=== PATIENT | female | born 1950 | race Caucasian/White ===

== ENCOUNTER 2018-10-09 21:27 | Inpatient (IN) | payer MEDICARE, MEDICAID ==
[~2018-10-09] VITALS: Ht 160 cm; Wt 45.0 kg
[~2018-10-09 21:27] MED LIST: HYDR-2514 PO
[2018-10-09 22:01] LABS: BASOPHILS % (AUTO) 0.4 % (0-1); EOSINOPHILS # (AUTO) 0.2 X10'3 (0-0.9); HEMOGLOBIN 12.5 g/dl (12.0-16.0); LYMPHOCYTES # (AUTO) 1.3 X10'3 (1.1-4.8); LYMPHOCYTES % (AUTO) 12.2 % (21-51); MEAN CORPUSCULAR HEMOGLOBIN 28.9 PG (27.0-31.0); MEAN CORPUSCULAR VOLUME 87.5 FL (78-98); MEAN PLATELET VOLUME 7.3 FL (7.4-10.4); MONOCYTES # (AUTO) 0.7 X10'3 (0-0.9); MONOCYTES % (AUTO) 6.6 % (2-12); NEUTROPHILS # (AUTO) 8.1 X10'3 (1.8-7.7); NEUTROPHILS % (AUTO) 78.8 % (42-75); PLATELET COUNT 315 X10'3 (140-440); RED BLOOD COUNT 4.34 X10'6 (4.20-5.60); RED CELL DISTRIBUTION WIDTH 13.6 % (11.5-14.5); WHITE BLOOD COUNT 10.3 X10'3 (4.5-11.0)
[2018-10-09 22:17] LABS: PROTHROMBIN TIME 10.1 SECONDS (9.0-12.0)
[2018-10-09 22:19] LABS: ALANINE AMINOTRANSFERASE 18 U/L (12-78); ALBUMIN 3.6 G/DL (3.4-5.0); ALBUMIN/GLOBULIN RATIO 0.9 (1.1-1.5); ALKALINE PHOSPHATASE 87 IU/L (46-116); ANION GAP 10 (8-16); ASPARTATE AMINO TRANSFERASE 19 U/L (10-37); BILIRUBIN,TOTAL 0.4 MG/DL (0.1-1.0); BLOOD UREA NITROGEN 15 MG/DL (7-18); CHLORIDE 101 MMOL/L (99-107); GLUCOSE 124 MG/DL (70-104); POTASSIUM 3.1 MMOL/L (3.5-5.1); SODIUM 139 MMOL/L (135-145); TOTAL CARBON DIOXIDE 28.3 MMOL/L (24-32); TOTAL PROTEIN 7.8 G/DL (6.4-8.2); eGFR 55 ML/MIN
[2018-10-09] MEDS ORDERED: normal saline 1000ML IV soln IVB ONE (22:25)
[2018-10-09] MEDS ORDERED: normal saline 1000ml 1,000 ML IV ONE (22:45)
[2018-10-09] MEDS ORDERED: iohexol 300mg/ml 100ml inj. ONE (22:53)
[2018-10-09 23:34] LABS: OCCULT BLOOD STOOL POSITIVE (Neg)
[2018-10-10] MEDS ORDERED: PROCHC RC (00:19)
[2018-10-10] MEDS ORDERED: piperacillin/tazo 3.375gm/50ml 50 ML IV ONE (01:05)
[2018-10-10] MEDS ORDERED: morphine 4 MG/ML inj SYRINge IV ONE (01:30)
[2018-10-10 01:47] LABS: CLARITY,URINE CLEAR (Clear); COLOR,URINE STRAW (Yellow); GLUCOSE, URINE NEGATIVE (Neg); KETONES,URINE NEGATIVE (Neg); LEUKOCYTE ESTERASE ,URINE NEGATIVE (Neg); NITRITES, URINE NEGATIVE (Neg); OCCULT BLOOD,URINE NEGATIVE (Neg); PROTEIN,URINE NEGATIVE (Neg); UROBILINOGEN,URINE 0.2 E.U/dL (0.2-1.0)
[2018-10-10 02:06] LABS: UA COLLECTION TYPE CLN CATCH MIDSTREAM
[2018-10-10] MEDS ORDERED: acetaminophen 325mg tablet PO PRN (02:40)
[2018-10-10] MEDS ORDERED: ondansetron/PF 4mg/2ml inj IV PRN (02:40)
[2018-10-10] MEDS ORDERED: morphine 2 MG/ML inj. syringe IV PRN (02:45)
[2018-10-10] MEDS: normal saline 1000ml 1,000 ML IV SCH ×3 (03:01→22:37)
[2018-10-10 04:30] VITALS: BP 131/56
[2018-10-10] MEDS ORDERED: potassium Cl 40MEQ/NS 500ml 500 ML IV PRN ×2 (04:50)
[2018-10-10] MEDS ORDERED: potassium Cl 20 mEq SR tablet PO PRN ×2 (04:50)
[2018-10-10] MEDS ORDERED: magnesium 4gm in 100ml NS 100 ML IV PRN (04:50)
[2018-10-10] MEDS ORDERED: magnesium 2GM in 50ml NS 50 ML IV PRN (04:50)
[2018-10-10 06:15] LABS: MAGNESIUM 1.8 MG/DL (1.5-2.4); POTASSIUM 3.7 MMOL/L (3.5-5.1)
[2018-10-10 08:00] VITALS: BP 133/61
[2018-10-10] MEDS: metroNIDAZOLE-Flagyl 500mg/NS 100 ML IV SCH ×2 (09:16→16:08)
[2018-10-10] MEDS: morphine 4 MG/ML inj SYRINge IV PRN ×4 (09:17→22:22)
[2018-10-10] MEDS: ciprofloxacin lact 400MG/200ML 200 ML IV SCH ×2 (09:25→19:35)
[2018-10-10 10:29] LABS: BASOPHILS % (AUTO) 0.4 % (0-1); EOSINOPHILS # (AUTO) 0.2 X10'3 (0-0.9); EOSINOPHILS % (AUTO) 2.4 % (0-6); HEMATOCRIT 31.4 % (35.0-45.0); HEMOGLOBIN 10.5 g/dl (12.0-16.0); LYMPHOCYTES # (AUTO) 1.4 X10'3 (1.1-4.8); MEAN CORPUSCULAR HGB CONC 33.4 % (33.0-36.5); MEAN CORPUSCULAR VOLUME 86.7 FL (78-98); MEAN PLATELET VOLUME 7.4 FL (7.4-10.4); MONOCYTES # (AUTO) 0.8 X10'3 (0-0.9); MONOCYTES % (AUTO) 11.3 % (2-12); NEUTROPHILS # (AUTO) 4.5 X10'3 (1.8-7.7); NEUTROPHILS % (AUTO) 65.9 % (42-75); PLATELET COUNT 245 X10'3 (140-440); RED BLOOD COUNT 3.62 X10'6 (4.20-5.60); RED CELL DISTRIBUTION WIDTH 13.7 % (11.5-14.5); WHITE BLOOD COUNT 6.9 X10'3 (4.5-11.0)
[2018-10-10 10:44] LABS: ALANINE AMINOTRANSFERASE 16 U/L (12-78); ALBUMIN 2.8 G/DL (3.4-5.0); ALBUMIN/GLOBULIN RATIO 0.8 (1.1-1.5); ALKALINE PHOSPHATASE 64 IU/L (46-116); ANION GAP 7 (8-16); ASPARTATE AMINO TRANSFERASE 13 U/L (10-37); BILIRUBIN,TOTAL 0.3 MG/DL (0.1-1.0); BLOOD UREA NITROGEN 7 MG/DL (7-18); BUN/CREATININE RATIO 8.2 (6.6-38.0); CALCIUM 7.7 MG/DL (8.5-10.1); CHLORIDE 107 MMOL/L (99-107); CREATININE 0.85 MG/DL (0.40-0.90); GLUCOSE 115 MG/DL (70-104); POTASSIUM 3.6 MMOL/L (3.5-5.1); SODIUM 139 MMOL/L (135-145); TOTAL CARBON DIOXIDE 24.8 MMOL/L (24-32); TOTAL PROTEIN 6.4 G/DL (6.4-8.2); eGFR 67 ML/MIN
[2018-10-10 11:04] LABS: INR 1.1 INR; PARTIAL THROMBOPLASTIN TIME 24 SECONDS (22-32); PROTHROMBIN TIME 10.3 SECONDS (9.0-12.0)
[2018-10-10 12:00] VITALS: BP 120/70
[2018-10-10] MEDS: lactobacillus rhamnosus 10,000 MMU CELLS/CAPSULE PO SCH (19:35)
[2018-10-10 20:00] VITALS: BP 119/77
[2018-10-11] VITALS: BP 117/53
[2018-10-11] MEDS: HYDROcodone/acetaminophen 10/325mg tab PO PRN ×2 (01:16→09:11)
[2018-10-11] MEDS: metroNIDAZOLE-Flagyl 500mg/NS 100 ML IV SCH ×2 (01:23→09:06)
[2018-10-11 05:42] LABS: BASOPHILS % (AUTO) 0.3 % (0-1); EOSINOPHILS # (AUTO) 0.3 X10'3 (0-0.9); EOSINOPHILS % (AUTO) 3.6 % (0-6); HEMATOCRIT 29.6 % (35.0-45.0); HEMOGLOBIN 9.9 g/dl (12.0-16.0); LYMPHOCYTES # (AUTO) 1.9 X10'3 (1.1-4.8); LYMPHOCYTES % (AUTO) 24.5 % (21-51); MEAN CORPUSCULAR HGB CONC 33.3 % (33.0-36.5); MEAN CORPUSCULAR VOLUME 87.2 FL (78-98); MEAN PLATELET VOLUME 7.4 FL (7.4-10.4); MONOCYTES # (AUTO) 0.7 X10'3 (0-0.9); MONOCYTES % (AUTO) 8.8 % (2-12); NEUTROPHILS # (AUTO) 4.8 X10'3 (1.8-7.7); NEUTROPHILS % (AUTO) 62.8 % (42-75); PLATELET COUNT 235 X10'3 (140-440); RED BLOOD COUNT 3.39 X10'6 (4.20-5.60); RED CELL DISTRIBUTION WIDTH 13.6 % (11.5-14.5); WHITE BLOOD COUNT 7.6 X10'3 (4.5-11.0)
[2018-10-11 06:15] LABS: ALANINE AMINOTRANSFERASE 12 U/L (12-78); ALBUMIN 2.7 G/DL (3.4-5.0); ALBUMIN/GLOBULIN RATIO 0.8 (1.1-1.5); ALKALINE PHOSPHATASE 67 IU/L (46-116); ANION GAP 10 (8-16); ASPARTATE AMINO TRANSFERASE 14 U/L (10-37); BILIRUBIN,TOTAL 0.4 MG/DL (0.1-1.0); BLOOD UREA NITROGEN 6 MG/DL (7-18); BUN/CREATININE RATIO 6.6 (6.6-38.0); CALCIUM 8.5 MG/DL (8.5-10.1); CHLORIDE 107 MMOL/L (99-107); CREATININE 0.91 MG/DL (0.40-0.90); GLUCOSE 98 MG/DL (70-104); MAGNESIUM 1.8 MG/DL (1.5-2.4); POTASSIUM 3.7 MMOL/L (3.5-5.1); SODIUM 142 MMOL/L (135-145); TOTAL CARBON DIOXIDE 25.2 MMOL/L (24-32); TOTAL PROTEIN 6.2 G/DL (6.4-8.2); eGFR 62 ML/MIN
[2018-10-11 07:00] VITALS: BP_SYST 113; BP_SYST 130; BP_DIAS 53; BP_DIAS 59
[2018-10-11] MEDS: normal saline 1000ml 1,000 ML IV SCH (08:37)
[2018-10-11] MEDS: lactobacillus rhamnosus 10,000 MMU CELLS/CAPSULE PO SCH (09:06)
[2018-10-11] MEDS: ciprofloxacin lact 400MG/200ML 200 ML IV SCH (10:43)
[2018-10-11] MEDS ORDERED: METR-211 PO (14:06)
[2018-10-11] MEDS ORDERED: CIPR-230 PO (14:06)
== END 2018-10-11 18:05 | disposition home or self-care (01) | DRG 377 ==
LOC: ER 21:28 → ED HOLD 10-10 02:37 → SUR 3N 10-10 04:10 → CMPBEDREQ 10-10 04:20
PROVIDERS: ADMIT Internal Medicine; ATTEND Family Medicine
DX: K92.2 Gastrointestinal hemorrhage, unspecified (principal); E43 Unspecified severe protein-calorie malnutrition; A04.9 Bacterial intestinal infection, unspecified; D62 Acute posthemorrhagic anemia; Z68.1 Body mass index [BMI] 19.9 or less, adult; B19.20 Unspecified viral hepatitis C without hepatic coma; K64.4 Residual hemorrhoidal skin tags; Z90.710 Acquired absence of both cervix and uterus; Z88.6 Allergy status to analgesic agent; Z79.899 Other long term (current) drug therapy
CPT/HCPCS: 36415; 74177; 80053; 81003; 82272; 83605; 83735; 84132; 85025; 85610; 85730; 87040; 87070; 93005; 96361; 96365; 99285; G0378; J0744; J2270; J2543; J3490; J7030; Q9967

== ENCOUNTER 2019-03-17 13:44 | Emergency (ER) | payer MEDICARE, MEDICAID ==
[~2019-03-17] VITALS: Ht 162.6 cm; Wt 56.8 kg
[2019-03-17 13:50] VITALS: BP 131/77
[2019-03-17] MEDS ORDERED: LIDOcaine 5% patch TP ONE (14:30)
[2019-03-17] MEDS ORDERED: acetaminophen 325mg tablet PO ONE (14:30)
[2019-03-17] MEDS ORDERED: ketorolac trometh inj. 60 MG/2 ML VIAL IM ONE (14:30)
[2019-03-17] MEDS ORDERED: IBUP-1984 PO (14:32)
[2019-03-17] MEDS ORDERED: LIDO700A32 TOP (14:32)
[2019-03-17] MEDS ORDERED: HYDR-3965 PO (14:32)
== END 2019-03-17 14:53 | disposition home or self-care (01) ==
LOC: ER 13:44
DX: M54.6 Pain in thoracic spine (principal); G89.29 Other chronic pain; Z90.710 Acquired absence of both cervix and uterus; Z88.5 Allergy status to narcotic agent; Z79.899 Other long term (current) drug therapy
CPT/HCPCS: 99284; J1885

== ENCOUNTER 2021-10-10 14:50 | Outpatient (CLI) | payer MEDICARE, MEDICAID ==
[~2021-10-10] VITALS: Ht 162.6 cm; Wt 72.1 kg
[~2021-10-10 14:50] MED LIST changes: +ASPI81TA52 PO; +CLOP75TA34 PO; -HYDR-2514 PO; +HYDR-3965 PO; +SIMV40TA PO
[2021-10-10] MEDS ORDERED: GABA-530 PO (15:19)
[2021-10-10] MEDS ORDERED: LOSA100T57 PO (15:19)
[2021-10-10] MEDS ORDERED: ZOLP5TAB8 PO (15:19)
[2021-10-10] MEDS ORDERED: HYDR-3965 PO (15:22)
[2021-10-10] MEDS ORDERED: HYDR-3964 PO (15:22)
[2021-10-10] MEDS ORDERED: ASPI-1071 PO (15:23)
[2021-10-10 15:54] LABS: BASOPHILS % (AUTO) 0.8 % (0-1); EOSINOPHILS # (AUTO) 0.2 X10'3 (0-0.9); EOSINOPHILS % (AUTO) 3.3 % (0-6); LYMPHOCYTES # (AUTO) 1.8 X10'3 (1.1-4.8); LYMPHOCYTES % (AUTO) 29.7 % (21-51); MEAN CORPUSCULAR HEMOGLOBIN 28.3 PG (27.0-31.0); MEAN CORPUSCULAR HGB CONC 32.8 g/dL (33.0-36.5); MEAN CORPUSCULAR VOLUME 86.3 FL (78-98); MEAN PLATELET VOLUME 7.1 FL (7.4-10.4); MONOCYTES # (AUTO) 0.7 X10'3 (0-0.9); MONOCYTES % (AUTO) 11.3 % (2-12); NEUTROPHILS # (AUTO) 3.3 X10'3 (1.8-7.7); NEUTROPHILS % (AUTO) 54.9 % (42-75); PRE OP HEMATOCRIT 33.9 % (35.0-45.0); PRE OP HEMOGLOBIN 11.1 g/dL (12.0-16.0); PRE OP PLATELET COUNT 287 X10'3 (140-440); RED BLOOD COUNT 3.93 X10'6 (4.20-5.60)
[2021-10-10 16:11] LABS: ALKALINE PHOSPHATASE 71 IU/L (46-116); BLOOD UREA NITROGEN 13 MG/DL (7-18); BUN/CREATININE RATIO 11.8 (6.6-38.0); CALCIUM 9.2 MG/DL (8.5-10.1); CHLORIDE 105 MMOL/L (99-107); PRE OP ALT 23 U/L (30-65); PRE OP ANION GAP 11 (8-16); PRE OP AST 22 U/L (10-37); PRE OP BILIRUB, TOTAL 0.3 MG/DL (0.0-1.0); PRE OP GLUCOSE 95 MG/DL (70-104); PRE OP POTASSIUM 4.7 MMOL/L (3.4-5.1); PRE OP SODIUM 141 MMOL/L (135-145); TOTAL CARBON DIOXIDE 24.8 MMOL/L (24-32); eGFR 49 ML/MIN
[2021-10-10 16:20] LABS: PRE OP INR 0.9 INR; PRE OP PROTIME 9.8 SECONDS (9.0-12.0)
[2021-10-18] MEDS ORDERED: ringers solution, lacted 1,000 ML IV SCH (05:00)
[2021-10-18] MEDS ORDERED: famotidine 20mg tablet PO ONE (05:30)
== END 2021-10-10 23:59 | disposition home or self-care (01) ==
LOC: PRE-OP 14:50 → EDSTATUS 10-18 11:00
PROVIDERS: ATTEND Surgery
DX: Z01.818 Encounter for other preprocedural examination (principal); K44.9 Diaphragmatic hernia without obstruction or gangrene; Z20.822 Contact with and (suspected) exposure to COVID-19; Z79.01 Long term (current) use of anticoagulants
CPT/HCPCS: 36415; 71046; 80053; 85025; 85610; 85730; 87081; 93005; U0003; U0005; J7120

== ENCOUNTER 2021-12-20 05:39 | Inpatient (IN) | payer MEDICARE, MEDICAID ==
[2021-12-13 15:46] LABS: BASOPHILS # (AUTO) 0.1 X10'3 (0-0.2); BASOPHILS % (AUTO) 0.9 % (0-1); EOSINOPHILS # (AUTO) 0.2 X10'3 (0-0.9); EOSINOPHILS % (AUTO) 2.1 % (0-6); LYMPHOCYTES # (AUTO) 1.5 X10'3 (1.1-4.8); LYMPHOCYTES % (AUTO) 18.5 % (21-51); MEAN CORPUSCULAR HEMOGLOBIN 28.5 PG (27.0-31.0); MEAN CORPUSCULAR HGB CONC 33.2 g/dL (33.0-36.5); MEAN PLATELET VOLUME 7.6 FL (7.4-10.4); MONOCYTES # (AUTO) 0.7 X10'3 (0-0.9); MONOCYTES % (AUTO) 8.8 % (2-12); NEUTROPHILS # (AUTO) 5.5 X10'3 (1.8-7.7); NEUTROPHILS % (AUTO) 69.7 % (42-75); PRE OP HEMOGLOBIN 11.3 g/dL (12.0-16.0); PRE OP PLATELET COUNT 305 X10'3 (140-440); RED BLOOD COUNT 3.95 X10'6 (4.20-5.60); RED CELL DISTRIBUTION WIDTH 14.4 % (11.5-14.5)
[2021-12-13 15:59] LABS: BLOOD UREA NITROGEN 13 MG/DL (7-18); CALCIUM 9.1 MG/DL (8.5-10.1); CHLORIDE 106 MMOL/L (99-107); CREATININE 1.08 MG/DL (0.40-0.90); PRE OP ANION GAP 11 (8-16); PRE OP GLUCOSE 95 MG/DL (70-104); PRE OP POTASSIUM 5.1 MMOL/L (3.4-5.1); PRE OP SODIUM 142 MMOL/L (135-145); TOTAL CARBON DIOXIDE 25.2 MMOL/L (24-32); eGFR 50 ML/MIN
[2021-12-13 16:00] LABS: ALBUMIN/GLOBULIN RATIO 1.1 (1.1-1.5); ALKALINE PHOSPHATASE 78 IU/L (46-116); PRE OP ALT 23 U/L (30-65); PRE OP AST 21 U/L (10-37); PRE OP BILIRUB, TOTAL 0.2 MG/DL (0.0-1.0); TOTAL PROTEIN 7.5 G/DL (6.4-8.2)
[2021-12-20] VITALS (21 sets, daily range): BP systolic 114–157; BP diastolic 53–88
[~2021-12-20] VITALS: Ht 162.6 cm; Wt 74.8 kg
[~2021-12-20 05:39] MED LIST changes: +ASPI-1071 PO; -ASPI81TA52 PO; -CLOP75TA34 PO; +GABA-530 PO; +HYDR-3686 PO; +LOSA100T57 PO; +cefazolin/dext.iso 2gm/50ml IV ONE; +famotidine 20mg tablet PO ONE; +ringers solution, lacted 1,000 ML IV SCH
[2021-12-20] MEDS ORDERED: LIDOcaine 1% (10mg/ml) 2ml vial ONE (05:55)
[2021-12-20] MEDS ORDERED: BUPIVAcaine 0.5% inj/PF 30 ML ONE (06:58)
[2021-12-20] MEDS ORDERED: LIDOcaine 1% 30ml preserv. free vial ONE (06:58)
[2021-12-20] MEDS ORDERED: sevoflurane 250ml liquid IH ONE (08:12)
[2021-12-20] MEDS ORDERED: midazolam 1 mg/ML 2ml injection ONE (08:13)
[2021-12-20] MEDS ORDERED: fentaNYL /PF 50mcg/ml 5ml ampule ONE (08:13)
[2021-12-20] MEDS ORDERED: ketamine 50mg/5ml syringe ONE (08:34)
[2021-12-20] MEDS ORDERED: LIDOcaine 2% (20mg/ml) 5ml vial ONE (09:09)
[2021-12-20] MEDS ORDERED: rocuronium 10mg/ml inj IV ONE (09:09)
[2021-12-20] MEDS ORDERED: neostigmine methylsulfate 1 MG/ML 10ml vial ONE (09:09)
[2021-12-20] MEDS ORDERED: ondansetron/PF 4mg/2ml inj ONE (09:09)
[2021-12-20] MEDS ORDERED: dexamethasone sod phosphate 4mg/ml inj. ONE (09:09)
[2021-12-20] MEDS ORDERED: propofol inj 20 ML IV ONE (09:09)
[2021-12-20] MEDS ORDERED: labetalol 20mg/4ml (5mg/ml) syringe IV ONE (09:09)
[2021-12-20] MEDS ORDERED: ePHEDrine 50MG/ML INJ. ONE (09:09)
[2021-12-20] MEDS ORDERED: glycopyrrolate 0.2mg/ml inj ONE (09:09)
--- NOTE | 2021-12-20 10:20 | NUR ---
PT ARRIVED TO RECOVERY VIA BED, WAKING UP, VSS, ACCOMPANIED BY DR ASH-ANESTHESIA REPORT GIVEN, PIV 20G RUE-LR RUNNING, F/C PLACED IN OR, DERMABOND X5 TO ABD-CDI, SCDS ON, DENIES N/V
[2021-12-20] MEDS ORDERED: naloxone 0.4 mg/ml inj IV PRN (10:25)
[2021-12-20] MEDS ORDERED: CADD PCA waste documentation MC PRN (10:25)
[2021-12-20] MEDS ORDERED: Potassium Cl inj 20 MEQ in ringers solution, lacted 1,000 ML IV SCH (10:25)
[2021-12-20] MEDS ORDERED: HYDROmorph./NS 0.2 mg/ml CADD 100 ML IV SCH (10:25)
[2021-12-20] MEDS ORDERED: ondansetron/PF 4mg/2ml inj IV PRN ×3 (10:25→12:15)
[2021-12-20] MEDS: ringers solution, lacted 1,000 ML IV SCH ×3 (10:30→22:59)
[2021-12-20] MEDS ORDERED: hydrOXYzine 25 MG tablet PO PRN (10:30)
[2021-12-20] MEDS ORDERED: ringers solution, lacted 1,000 ML IV SCH ×2 (10:35→12:15)
[2021-12-20] MEDS ORDERED: HYDROmorphone/PF 0.2 MG/ML SYRINGE IV PRN ×3 (10:35→12:15)
[2021-12-20] MEDS: HYDROmorphone/PF 0.2 MG/ML SYRINGE IV PRN ×4 (10:48→14:12)
[2021-12-20] MEDS: morphine 2 MG/ML inj. syringe IV PRN ×3 (10:52→14:13)
[2021-12-20] MEDS: albuterol 2.5 MG/3 ML nebule NEB SCH ×3 (11:00→19:00)
[2021-12-20] MEDS ORDERED: acetaminophen 1,000mg/100ml IV 100 ML IV ONE (11:00)
[2021-12-20] MEDS ORDERED: HYDROmorph./NS 0.2 mg/ml CADD 50 ML IV SCH (11:28)
--- NOTE | 2021-12-20 12:00 | NUR ---
PT PAINFUL-ATTEMPTING TO ASSIST WITH PAIN RELIEF-MEDS GIVEN, PT EATING ICE CHIPS, TRYING TO REPOSITION FOR COMFORT IN BED, VSS, F/C IN PLACE, IVF RUNNING, WAITING FOR BED.
[2021-12-20] MEDS ORDERED: acetaminophen 1,000mg/100ml IV 100 ML IV PRN (12:15)
[2021-12-20] MEDS ORDERED: labetalol 20mg/4ml (5mg/ml) syringe IV PRN (12:15)
[2021-12-20] MEDS ORDERED: morphine 2 MG/ML inj. syringe IV PRN (12:15)
[2021-12-20] MEDS: HYDROmorph./NS 0.2 mg/ml CADD 50 ML IV SCH ×6 (12:22→23:00)
[2021-12-20] MEDS: gabapentin 300mg capsule PO SCH ×2 (13:00→20:28)
--- NOTE | 2021-12-20 13:45 | NUR ---
VSS, PAIN MANAGEABLE, JUST GAVE ANOTHER DOSE OF DILAUDID-COLUMN PRECASTER SET UP BUT NO PT BUTTON AVAILABLE, WILL ATTACHED ON FLOOR UPON TRANSFER, REPORT CALLED TO SIRI RN-ALL QUESTIONS ANSWERED, NO CHANGE IN INCISION SITE-CDI, SCDS ON, IVF RUNNING-20G RIGHT HAND, TAKEN IN BED WITH BELONGINGS TO ROOM 355B.
--- NOTE | 2021-12-20 14:00 | NUR ---
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
--- NOTE | 2021-12-20 14:04 | NUR ---
PT ARRIVED TO FLOOR, VS STABLE, IV FLUIDS ORDERED, CADD PUMP NOT FUNCTIONING CORRECTLY BOOKING AGENT RESOLVING ISSUE. PT IS 7/10 PAIN.
--- NOTE | 2021-12-20 19:06 | NUR ---
Patient in room JUSTEN 355. I have received report from KARLA Latif and had the opportunity to ask questions and assume patient care.
[2021-12-20] MEDS ORDERED: atorvastatin 20mg tablet PO SCH (21:00)
[2021-12-21] MEDS: HYDROmorph./NS 0.2 mg/ml CADD 50 ML IV SCH ×6 (01:00→11:00)
[2021-12-21 04:00] VITALS: BP 147/69
[2021-12-21 06:03] LABS: BASOPHILS % (AUTO) 0.3 % (0-1); EOSINOPHILS % (AUTO) 0 % (0-6); HEMATOCRIT 29.9 % (35.0-45.0); HEMOGLOBIN 9.8 g/dl (12.0-16.0); LYMPHOCYTES % (AUTO) 10.8 % (21-51); MEAN CORPUSCULAR HEMOGLOBIN 28.6 PG (27.0-31.0); MEAN CORPUSCULAR HGB CONC 32.7 g/dL (33.0-36.5); MEAN CORPUSCULAR VOLUME 87.3 FL (78-98); MEAN PLATELET VOLUME 7.1 FL (7.4-10.4); MONOCYTES # (AUTO) 0.6 X10'3 (0-0.9); MONOCYTES % (AUTO) 6.3 % (2-12); NEUTROPHILS # (AUTO) 7.6 X10'3 (1.8-7.7); NEUTROPHILS % (AUTO) 82.6 % (42-75); PLATELET COUNT 236 X10'3 (140-440); RED BLOOD COUNT 3.43 X10'6 (4.20-5.60); RED CELL DISTRIBUTION WIDTH 14.7 % (11.5-14.5); WHITE BLOOD COUNT 9.2 X10'3 (4.5-11.0)
--- NOTE | 2021-12-21 06:14 | NUR ---
Problems reprioritized. Patient report given, questions answered & plan of care reviewed with KARLA Latif.
[2021-12-21 06:34] LABS: ALBUMIN 3.3 G/DL (3.4-5.0); ANION GAP 10 (8-16); BLOOD UREA NITROGEN 18 MG/DL (7-18); BUN/CREATININE RATIO 17.1 (6.6-38.0); CALCIUM 8.3 MG/DL (8.5-10.1); CHLORIDE 104 MMOL/L (99-107); CREATININE 1.05 MG/DL (0.40-0.90); GLUCOSE 134 MG/DL (70-104); SODIUM 137 MMOL/L (135-145); TOTAL CARBON DIOXIDE 22.6 MMOL/L (24-32); eGFR 52 ML/MIN
--- NOTE | 2021-12-21 06:41 | NUR ---
Patient in room JUSTEN 355. I have received report from WALLY ACOSTA and had the opportunity to ask questions and assume patient care.
--- NOTE | 2021-12-21 06:52 | NUR ---
CADD PUMP SETTINGS CHECK MISS DOSED FOR 0500. NOC SHIFT NURSE DID NOT COMPLETE THIS
[2021-12-21] MEDS: albuterol 2.5 MG/3 ML nebule NEB SCH ×3 (07:00→15:00)
[2021-12-21] MEDS: gabapentin 300mg capsule PO SCH ×2 (07:34→15:11)
[2021-12-21] MEDS: ringers solution, lacted 1,000 ML IV SCH (07:42)
[2021-12-21 08:00] VITALS: BP 137/67
[2021-12-21] MEDS ORDERED: losartan 50mg tablet PO SCH (08:00)
[2021-12-21 11:00] VITALS: BP 138/84
[2021-12-21] MEDS: oxyCODONE/APAP 5-325mg tablet PO PRN ×2 (12:50→17:06)
--- NOTE | 2021-12-21 14:48 | NUR ---
Nutrition consult: Pt s/p laparoscopic Elias fundoplication, seen at beside provided with written and verbal nutrition therapy education which includes diet progression and ONS coupons. All of patient's questions were answered at this time. RD contact information provided and pt encouraged to reach out if needed. Will remain available. Addendum: 12/21/21 at [address] Amended: Links added.
[2021-12-21] MEDS ORDERED: PER5325T PO (17:21)
--- NOTE | 2021-12-21 18:59 | NUR ---
Patient in room JUSTEN 355. I have received report from KARLA Latif and had the opportunity to ask questions and assume patient care. Patient was taken out by me for discharge. Caregiver took patient home, with belongings
== END 2021-12-21 18:59 | disposition home or self-care (01) | DRG 328 ==
LOC: PAS 05:39 → EDSTATUS 07:30 → PAS IN 10:25 → SUR 3N 14:27
PROVIDERS: ADMIT Surgery; ATTEND Surgery
PROC: 0DV44ZZ Restriction of Esophagogastric Junction, Percutaneous Endoscopic Approach (ICD-10-PCS; 2021-12-20)
PROC: 8E0W4CZ Robotic Assisted Procedure of Trunk Region, Percutaneous Endoscopic Approach (ICD-10-PCS; 2021-12-20)
PROC: 0BQT4ZZ Repair Diaphragm, Percutaneous Endoscopic Approach (ICD-10-PCS; principal; 2021-12-20 08:12)
PROC: BD11YZZ Fluoroscopy of Esophagus using Other Contrast (ICD-10-PCS; 2021-12-21)
DX: K44.9 Diaphragmatic hernia without obstruction or gangrene (principal); E78.5 Hyperlipidemia, unspecified; K22.89 Other specified disease of esophagus; G47.30 Sleep apnea, unspecified; G62.9 Polyneuropathy, unspecified; I12.9 Hypertensive chronic kidney disease with stage 1 through stage 4 chronic kidney disease, or unspecified chronic kidney disease; N18.9 Chronic kidney disease, unspecified; G89.29 Other chronic pain; I73.9 Peripheral vascular disease, unspecified; Z86.73 Personal history of transient ischemic attack (TIA), and cerebral infarction without residual deficits; Z87.891 Personal history of nicotine dependence; Z90.711 Acquired absence of uterus with remaining cervical stump; Z88.5 Allergy status to narcotic agent; Z79.899 Other long term (current) drug therapy; Z79.82 Long term (current) use of aspirin
CPT/HCPCS: 36415; 71045; 74220; 80048; 80053; 82948; 85025; 87081; A4618; C1758; G0378; J0131; J0690; J1100; J1170; J2250; J2270; J2405; J2704; J2710; J3010; J3490; J7120; S0020; U0003; U0005

== ENCOUNTER 2021-12-31 23:21 | Inpatient (IN) | payer MEDICARE, MEDICAID ==
[~2021-12-31] VITALS: Ht 162.6 cm; Wt 79.9 kg
[~2021-12-31 23:21] MED LIST changes: -HYDR-3965 PO; +PER5325T PO; -cefazolin/dext.iso 2gm/50ml IV ONE; -famotidine 20mg tablet PO ONE; -ringers solution, lacted 1,000 ML IV SCH
[2022-01-01] MEDS ORDERED: normal saline 1000ML IV soln IVB ONE (00:05)
[2022-01-01 00:06] LABS: BASOPHILS % (AUTO) 0.4 % (0-1); EOSINOPHILS # (AUTO) 0.2 X10'3 (0-0.9); EOSINOPHILS % (AUTO) 1.8 % (0-6); HEMATOCRIT 30.3 % (35.0-45.0); LYMPHOCYTES # (AUTO) 1.6 X10'3 (1.1-4.8); LYMPHOCYTES % (AUTO) 18.6 % (21-51); MEAN CORPUSCULAR HEMOGLOBIN 28.7 PG (27.0-31.0); MEAN CORPUSCULAR HGB CONC 33.1 g/dL (33.0-36.5); MEAN CORPUSCULAR VOLUME 86.7 FL (78-98); MEAN PLATELET VOLUME 6.8 FL (7.4-10.4); MONOCYTES # (AUTO) 0.7 X10'3 (0-0.9); MONOCYTES % (AUTO) 7.7 % (2-12); NEUTROPHILS # (AUTO) 6.1 X10'3 (1.8-7.7); NEUTROPHILS % (AUTO) 71.5 % (42-75); PLATELET COUNT 350 X10'3 (140-440); RED BLOOD COUNT 3.49 X10'6 (4.20-5.60); RED CELL DISTRIBUTION WIDTH 14.2 % (11.5-14.5); WHITE BLOOD COUNT 8.5 X10'3 (4.5-11.0)
[2022-01-01] MEDS ORDERED: ondansetron/PF 4mg/2ml inj IV ONE (00:10)
[2022-01-01] MEDS ORDERED: morphine 4 MG/ML inj SYRINge IV ONE ×2 (00:10→05:25)
[2022-01-01] MEDS ORDERED: piperacillin/tazo 3.375gm/50ml 50 ML IV ONE (00:15)
[2022-01-01 00:37] LABS: ALANINE AMINOTRANSFERASE 16 U/L (12-78); ALBUMIN 3.3 G/DL (3.4-5.0); ALBUMIN/GLOBULIN RATIO 0.8 (1.1-1.5); ALKALINE PHOSPHATASE 64 IU/L (46-116); ANION GAP 11 (8-16); ASPARTATE AMINO TRANSFERASE 16 U/L (10-37); BILIRUBIN,TOTAL 0.3 MG/DL (0.1-1.0); BLOOD UREA NITROGEN 8 MG/DL (7-18); BUN/CREATININE RATIO 7.2 (6.6-38.0); CALCIUM 8.5 MG/DL (8.5-10.1); CHLORIDE 107 MMOL/L (99-107); CREATININE 1.11 MG/DL (0.40-0.90); GLUCOSE 111 MG/DL (70-104); POTASSIUM 4.1 MMOL/L (3.5-5.1); SODIUM 140 MMOL/L (135-145); TOTAL CARBON DIOXIDE 22.4 MMOL/L (24-32); TOTAL PROTEIN 7.2 G/DL (6.4-8.2); eGFR 49 ML/MIN
[2022-01-01] MEDS: morphine 2 MG/ML inj. syringe IV PRN ×6 (00:49→23:22)
[2022-01-01] MEDS: diatr meglu/diatrizoate 30ml oral sol.-(3 dose) bottle PO SCH ×2 (00:49→01:25)
[2022-01-01 01:23] LABS: CLARITY,URINE CLEAR (Clear); COLOR,URINE YELLOW (Yellow); GLUCOSE, URINE NEGATIVE (Neg); KETONES,URINE NEGATIVE (Neg); LEUKOCYTE ESTERASE ,URINE NEGATIVE (Neg); NITRITES, URINE NEGATIVE (Neg); OCCULT BLOOD,URINE NEGATIVE (Neg); PH,URINE 5.5 (4.8-8.0); PROTEIN,URINE NEGATIVE (Neg); UROBILINOGEN,URINE 0.2 E.U/dL (0.2-1.0)
[2022-01-01 01:36] LABS: UA COLLECTION TYPE NON-SPECIFIED
[2022-01-01] MEDS ORDERED: iohexol 300mg/ml 100ml inj. ONE ×2 (01:58→07:14)
--- NOTE | 2022-01-01 04:47 | NUR ---
[phone]
[2022-01-01] MEDS ORDERED: SIMV10TA2 PO (05:03)
[2022-01-01] MEDS ORDERED: magnesium 4gm in 100ml NS 100 ML IV PRN (05:40)
[2022-01-01] MEDS ORDERED: potassium CL 10mEq/100ml bag 100 ML IV PRN (05:40)
[2022-01-01] MEDS ORDERED: magnesium 2GM in 50ml NS 50 ML IV PRN (05:40)
[2022-01-01] MEDS ORDERED: acetaminophen 325mg tablet PO PRN (05:40)
[2022-01-01] MEDS ORDERED: magnesium hydroxide 30ml (MOM) UD suspension PO PRN (05:40)
[2022-01-01] MEDS ORDERED: ondansetron/PF 4mg/2ml inj IV PRN (05:40)
[2022-01-01] MEDS ORDERED: mag hydrox/Alum hydrox/simeth 30ml oral suspension PO PRN (05:40)
[2022-01-01] MEDS ORDERED: hydrOXYzine 25 MG tablet PO PRN (05:45)
--- NOTE | 2022-01-01 05:50 | NUR ---
Morphine 4 mg + 2 mg given for severe pain per Dr. Duron
[2022-01-01 06:07] LABS: MAGNESIUM 2.1 MG/DL (1.5-2.4)
--- NOTE | 2022-01-01 06:20 | NUR ---
first contact with pt. found supine in bed, rr even and unlabored. awaiting surgical consult for post hernia repair. no signs of distress.
--- NOTE | 2022-01-01 07:17 | NUR ---
pt to xray for esophogram. pt medicated with morphine prior to procedure.
[2022-01-01] MEDS: aspirin 81mg, enteric-coated 1 TAB TABLET.DR PO SCH (08:00)
[2022-01-01] MEDS: K and/or MAG REPLACEMENT MC SCH ×2 (08:00→20:00)
[2022-01-01] MEDS ORDERED: barium sulfate 450ml oral suspension ONE (08:00)
--- NOTE | 2022-01-01 08:06 | NUR ---
returned from esophogram without incident. pt ambulated with steady gait to/from restroom. no distress.
[2022-01-01] MEDS: normal saline 1000ml 1,000 ML IV SCH ×2 (09:00→15:40)
[2022-01-01] MEDS: gabapentin 300mg capsule PO SCH ×3 (09:15→20:40)
[2022-01-01] MEDS: piperacillin/tazo 3.375gm/50ml 50 ML IV SCH ×2 (09:16→16:53)
[2022-01-01] MEDS: docusate sod 100mg capsule PO SCH ×2 (09:16→20:00)
[2022-01-01] MEDS: losartan 50mg tablet PO SCH (09:16)
--- NOTE | 2022-01-01 11:35 | NUR ---
pt placed in new gown after moderate bm. new linens placed.
[2022-01-01] MEDS: HYDROcodone/acetaminophen 5mg/325mg tablet PO PRN ×2 (11:44→20:40)
--- NOTE | 2022-01-01 12:05 | NUR ---
pt ambulated with steady gait to/from restroom.
--- NOTE | 2022-01-01 13:00 | NUR ---
pt to/from restroom without incident.
--- NOTE | 2022-01-01 13:15 | NUR ---
telephone report to alfa ocampo
[2022-01-01 13:56] VITALS: BP 109/57
--- NOTE | 2022-01-01 18:30 | NUR ---
Patient in room JUSTEN 355. I have received report from Kika ACOSTA and had the opportunity to ask questions and assume patient care.
[2022-01-01 20:00] VITALS: BP 139/64
[2022-01-01] MEDS ORDERED: atorvastatin 10mg tablet PO SCH (21:00)
[2022-01-02] VITALS: BP 133/64
[2022-01-02] MEDS: normal saline 1000ml 1,000 ML IV SCH ×2 (01:12→10:38)
[2022-01-02] MEDS: morphine 2 MG/ML inj. syringe IV PRN ×5 (01:49→17:10)
--- NOTE | 2022-01-02 06:20 | NUR ---
Patient in room JUSTEN 355. I have received report from KARLA Jaquez and had the opportunity to ask questions and assume patient care.
--- NOTE | 2022-01-02 06:26 | NUR ---
Problems reprioritized. Patient report given, questions answered & plan of care reviewed with ALICIA ACOSTA..
[2022-01-02 06:52] LABS: BASOPHILS % (AUTO) 0.8 % (0-1); EOSINOPHILS # (AUTO) 0.3 X10'3 (0-0.9); EOSINOPHILS % (AUTO) 6.4 % (0-6); HEMATOCRIT 28.7 % (35.0-45.0); HEMOGLOBIN 9.5 g/dl (12.0-16.0); LYMPHOCYTES # (AUTO) 1.4 X10'3 (1.1-4.8); LYMPHOCYTES % (AUTO) 33.3 % (21-51); MEAN CORPUSCULAR HEMOGLOBIN 28.9 PG (27.0-31.0); MEAN CORPUSCULAR HGB CONC 33.1 g/dL (33.0-36.5); MEAN CORPUSCULAR VOLUME 87.5 FL (78-98); MEAN PLATELET VOLUME 8.1 FL (7.4-10.4); MONOCYTES # (AUTO) 0.6 X10'3 (0-0.9); MONOCYTES % (AUTO) 13.3 % (2-12); NEUTROPHILS % (AUTO) 46.2 % (42-75); PLATELET COUNT 293 X10'3 (140-440); RED BLOOD COUNT 3.28 X10'6 (4.20-5.60); RED CELL DISTRIBUTION WIDTH 14.5 % (11.5-14.5); WHITE BLOOD COUNT 4.3 X10'3 (4.5-11.0)
[2022-01-02 07:00] VITALS: BP 148/70
[2022-01-02 07:07] LABS: ALANINE AMINOTRANSFERASE 16 U/L (12-78); ALBUMIN 3.1 G/DL (3.4-5.0); ALBUMIN/GLOBULIN RATIO 0.8 (1.1-1.5); ALKALINE PHOSPHATASE 57 IU/L (46-116); ANION GAP 9 (8-16); ASPARTATE AMINO TRANSFERASE 18 U/L (10-37); BILIRUBIN,TOTAL 0.3 MG/DL (0.1-1.0); BLOOD UREA NITROGEN 6 MG/DL (7-18); BUN/CREATININE RATIO 5.8 (6.6-38.0); CALCIUM 8.6 MG/DL (8.5-10.1); CHLORIDE 111 MMOL/L (99-107); CREATININE 1.03 MG/DL (0.40-0.90); GLUCOSE 100 MG/DL (70-104); POTASSIUM 4.1 MMOL/L (3.5-5.1); SODIUM 144 MMOL/L (135-145); TOTAL CARBON DIOXIDE 23.6 MMOL/L (24-32); TOTAL PROTEIN 6.8 G/DL (6.4-8.2); eGFR 53 ML/MIN
[2022-01-02 07:25] VITALS: BP 144/78
[2022-01-02] MEDS: docusate sod 100mg capsule PO SCH (08:00)
[2022-01-02] MEDS: aspirin 81mg, enteric-coated 1 TAB TABLET.DR PO SCH (08:00)
[2022-01-02] MEDS: K and/or MAG REPLACEMENT MC SCH (08:22)
[2022-01-02] MEDS: HYDROcodone/acetaminophen 5mg/325mg tablet PO PRN ×2 (08:26→15:32)
[2022-01-02] MEDS: gabapentin 300mg capsule PO SCH ×2 (08:27→13:18)
[2022-01-02] MEDS: losartan 50mg tablet PO SCH (08:30)
[2022-01-02] MEDS: piperacillin/tazo 3.375gm/50ml 50 ML IV SCH ×3 (09:21→15:29)
--- NOTE | 2022-01-02 10:53 | NUR ---
Student Medication Administration: For this medication-pass time frame 6682-1340, all medications were reviewed, administered and documented per hospital policy by Mildred Shirley. Student documentation: I have reviewed and agree with all interventions, assessments performed and documented by Mildred Shirley.
[2022-01-02 11:21] VITALS: BP 142/69
[2022-01-02 12:00] VITALS: BP 142/69
--- NOTE | 2022-01-02 18:00 | NUR ---
Problems reprioritized. Patient report given, questions answered & plan of care reviewed with KARLA Jaquez.
--- NOTE | 2022-01-02 18:30 | NUR ---
Patient in room JUSTEN 355. I have received report from Kika ACOSTA and had the opportunity to ask questions and assume patient care.
[2022-01-02] MEDS ORDERED: HYDROcodone/acetaminophen 10/325mg tab PO PRN (18:35)
[2022-01-02] MEDS ORDERED: PANT20TA18 PO (19:22)
== END 2022-01-02 20:07 | disposition home or self-care (01) | DRG 948 ==
LOC: ER 23:22 → ED HOLD 01-01 05:42 → SUR 3N 01-01 13:19
PROVIDERS: ADMIT Internal Medicine; ATTEND Internal Medicine
PROC: BD11YZZ Fluoroscopy of Esophagus using Other Contrast (ICD-10-PCS; principal; 2022-01-01)
PROC: BW211ZZ Computerized Tomography (CT Scan) of Abdomen and Pelvis using Low Osmolar Contrast (ICD-10-PCS; 2022-01-01)
DX: G89.18 Other acute postprocedural pain (principal); K20.90 Esophagitis, unspecified without bleeding; D64.9 Anemia, unspecified; Z20.822 Contact with and (suspected) exposure to COVID-19; B19.20 Unspecified viral hepatitis C without hepatic coma; G89.29 Other chronic pain; M54.9 Dorsalgia, unspecified; K44.9 Diaphragmatic hernia without obstruction or gangrene; E78.5 Hyperlipidemia, unspecified; I10 Essential (primary) hypertension; M16.10 Unilateral primary osteoarthritis, unspecified hip; Z90.711 Acquired absence of uterus with remaining cervical stump; Z86.73 Personal history of transient ischemic attack (TIA), and cerebral infarction without residual deficits; Z87.891 Personal history of nicotine dependence; Z88.5 Allergy status to narcotic agent; Z79.899 Other long term (current) drug therapy; Z98.51 Tubal ligation status
CPT/HCPCS: 36415; 71045; 74177; 74220; 80053; 81003; 83605; 83735; 83880; 84145; 85025; 87040; 87081; 93005; 99285; G0378; J2270; J2405; J2543; J7030; Q9963; Q9967

== ENCOUNTER 2022-01-17 07:50 | Day surgery (SDC) | payer MEDICARE, MEDICAID ==
[2022-01-10 16:28] LABS: BASOPHILS % (AUTO) 0.9 % (0-1); EOSINOPHILS # (AUTO) 0.2 X10'3 (0-0.9); EOSINOPHILS % (AUTO) 4.2 % (0-6); LYMPHOCYTES # (AUTO) 1.3 X10'3 (1.1-4.8); LYMPHOCYTES % (AUTO) 32.4 % (21-51); MEAN CORPUSCULAR HEMOGLOBIN 28.2 PG (27.0-31.0); MEAN CORPUSCULAR HGB CONC 32.8 g/dL (33.0-36.5); MEAN CORPUSCULAR VOLUME 86.1 FL (78-98); MEAN PLATELET VOLUME 7.6 FL (7.4-10.4); MONOCYTES # (AUTO) 0.5 X10'3 (0-0.9); MONOCYTES % (AUTO) 12.4 % (2-12); NEUTROPHILS # (AUTO) 2.1 X10'3 (1.8-7.7); NEUTROPHILS % (AUTO) 50.1 % (42-75); PRE OP HEMATOCRIT 34.4 % (35.0-45.0); PRE OP HEMOGLOBIN 11.3 g/dL (12.0-16.0); PRE OP PLATELET COUNT 377 X10'3 (140-440); RED BLOOD COUNT 3.99 X10'6 (4.20-5.60); RED CELL DISTRIBUTION WIDTH 14.2 % (11.5-14.5)
[2022-01-10 16:40] LABS: PRE OP PROTIME 10.4 SECONDS (9.0-12.0)
[2022-01-10 16:44] LABS: ALBUMIN 3.7 G/DL (3.4-5.0); ALBUMIN/GLOBULIN RATIO 0.9 (1.1-1.5); ALKALINE PHOSPHATASE 61 IU/L (46-116); BLOOD UREA NITROGEN 13 MG/DL (7-18); BUN/CREATININE RATIO 13.5 (6.6-38.0); CALCIUM 9.1 MG/DL (8.5-10.1); CHLORIDE 108 MMOL/L (99-107); CREATININE 0.96 MG/DL (0.40-0.90); PRE OP ALT 18 U/L (30-65); PRE OP ANION GAP 13 (8-16); PRE OP AST 31 U/L (10-37); PRE OP BILIRUB, TOTAL 0.2 MG/DL (0.0-1.0); PRE OP GLUCOSE 106 MG/DL (70-104); PRE OP SODIUM 144 MMOL/L (135-145); TOTAL CARBON DIOXIDE 23.3 MMOL/L (24-32); TOTAL PROTEIN 7.8 G/DL (6.4-8.2); eGFR 57 ML/MIN
[2022-01-17] VITALS (13 sets, daily range): BP systolic 141–166; BP diastolic 60–75
[~2022-01-17] VITALS: Ht 162.6 cm; Wt 75.6 kg
[~2022-01-17 07:50] MED LIST changes: +HYDR-3972 PO; +PANT20TA18 PO; -PER5325T PO; +SIMV10TA2 PO; -SIMV40TA PO; +cocaine 4% topical solution 4ml bottle ONE; +diazepam 5mg tablet PO PRN; +famotidine 20mg tablet PO ONE; +mupirocin 2% ointment 22GM ONE; +oxymetazoline 15 ML nasal spray NS ONE; +oxymetazoline 15 ML nasal spray NS SCH; +ringers solution, lacted 1,000 ML IV SCH
[2022-01-17] MEDS ORDERED: morphine 4 MG/ML inj SYRINge IV PRN (09:00)
[2022-01-17] MEDS ORDERED: ondansetron/PF 4mg/2ml inj IV PRN (09:00)
[2022-01-17] MEDS ORDERED: ringers solution, lacted 1,000 ML IV SCH (09:00)
[2022-01-17] MEDS ORDERED: proCHLORperazine 10 MG/2 ml inj IV PRN (09:00)
[2022-01-17] MEDS ORDERED: morphine 2 MG/ML inj. syringe IV PRN (09:00)
[2022-01-17] MEDS ORDERED: meperidine/PF 25mg/ml syringe IV PRN ×3 (09:00)
[2022-01-17] MEDS ORDERED: FENTANYL CITRATE/PF 50 MCG/1 ML VIAL ONE ×2 (10:31)
[2022-01-17] MEDS ORDERED: midazolam 1 mg/ML 2ml injection ONE (10:32)
[2022-01-17] MEDS ORDERED: LIDOcaine 2% (20mg/ml) 5ml vial ONE (10:32)
[2022-01-17] MEDS ORDERED: propofol inj 20 ML IV ONE (10:32)
[2022-01-17] MEDS ORDERED: dexamethasone sod phosphate 10mg/ml inj ONE (11:05)
[2022-01-17] MEDS ORDERED: sevoflurane 250ml liquid IH ONE (11:05)
[2022-01-17] MEDS ORDERED: ondansetron/PF 4mg/2ml inj ONE (11:27)
[2022-01-17] MEDS ORDERED: ePHEDrine 50MG/ML INJ. ONE (11:42)
--- NOTE | 2022-01-17 12:23 | NUR ---
Received from OR via YUNIOR , accompanied by Anesthesiologist DR CANNON and report given by Anesthesiolgist. PT PRESENTS WITH 20G RIGHT WRIST, NASAL PACKING CDI, VSS. Addendum: 01/17/22 at 1236 by Katherine Melendez RN, RN Amended: Links added.
[2022-01-17] MEDS ORDERED: HYDROcodone/acetaminophen 5mg/325mg tablet PO ONE (12:55)
[2022-01-17] MEDS ORDERED: salt irrigation nasal spray 45 ML SPRAY NS PRN (12:55)
--- NOTE | 2022-01-17 14:03 | NUR ---
PATIENT DISCHARGED FROM PACU IN STABLE CONDITION AFTER WRITTEN AND VERBAL DISCHARGE INSTRUCTIONS GIVEN. PATIENT GAVE VERBAL UNDERSTANDING OF INSTRUCTIONS GIVEN. PATIENT LEFT FACILITY VIA WHEELCHAIR WITH RN. Addendum: 01/17/22 at 1414 by Katherine Melendez RN RN Amended: Links added.
--- NOTE | 2022-01-18 18:18 | NUR ---
I CALLED PT THIS MORNING FOR OUR POST OP FOLLOW UP CALL AND SHE ASKED ME WHEN WAS SHE GOING TO BE ABLE TO BREATHE BETTER THROUGH HER NOSE, I TOLD HER IT GETS BETTER IN TIME AND THAT FLUSHING W/THE SALT WATER REALLY HELPS. SHE TOLD ME THAT SHE WASN'T SUPPOSE TO FLUSH FOR ONE WEEK, I TOLD HER THAT WAS NOT THE NORMAL D/C ORDERS THAT WE ROUTINELY GIVE AND READ HER THE D/C ORDERS FROM DR MOSS THAT STATED SHE NEEDED TO START FLUSHING THIS MORNING, SHE STATED HE HAD GIVEN HER SPECIAL INSTRUCTIONS THAT SAID NOT TO START FOR 1 WEEK, I TOLD HER OKAY BUT IF SHE HAS ANY PROBLEMS TO CALL DR MOSS. I THEN CALLED DR GARCIA OFFICE AND SPOKE W/HIS STAFF RELATING THE MESSAGE AND ASKING TO HAVE DR MOSS GIVE ME A CALL. AT 16:40 I CALLED AND GOT HIS ANSWERING SERVICE AND AGAIN REQUESTED THAT HE CALL ME REGARDING THIS PT. I NEVER RECEIVED A CALL FROM DR MOSS, AT 18:03 I CALLED THE PT AND ASKER HER IF SHE HAD HEARD FROM HIS HIM. SHE STATED THAT SHE HAD LOOKED AT THE D/C ORDERS AND SAW THAT IT SAID TO FLUSH STARTING TODAY, SHE ALSO STATED HE HAD CALLED HER AND TOLD HER THE SAME. I ASKED HER IF SHE HAD ANY QUESTIONS OR CONCERNS AND SHE SAID NO SHE DID NOT AND WAS EXTREMELY PLEASED WITH THE CARE AND CONCERN SHE HAS RECEIVED FROM OUR STAFF. Addendum: 01/18/22 at 1827 by Adelina Robert RN Amended: Links added.
== END 2022-01-17 14:03 | disposition home or self-care (01) ==
LOC: PAS 07:50
PROVIDERS: ATTEND Otolaryngology
DX: J34.2 Deviated nasal septum (principal); J34.3 Hypertrophy of nasal turbinates; G47.30 Sleep apnea, unspecified; G62.9 Polyneuropathy, unspecified; I12.9 Hypertensive chronic kidney disease with stage 1 through stage 4 chronic kidney disease, or unspecified chronic kidney disease; N18.30 Chronic kidney disease, stage 3 unspecified; Z79.899 Other long term (current) drug therapy; Z79.01 Long term (current) use of anticoagulants; Z20.822 Contact with and (suspected) exposure to COVID-19; Z90.710 Acquired absence of both cervix and uterus; Z98.890 Other specified postprocedural states; Z86.73 Personal history of transient ischemic attack (TIA), and cerebral infarction without residual deficits; Z88.5 Allergy status to narcotic agent; Z87.891 Personal history of nicotine dependence
CPT/HCPCS: 30140; 30520; 36415; 80053; 82948; 85025; 85576; 85610; 85730; 87635; A6402; C9250; C9803; J2175; J2250; J2270; J2405; J2704; J3010; J3490; J7030; J7120; U0003; U0005; Z7506; Z7508; Z7512; 88300; A4618; A7000; J1100

== ENCOUNTER 2022-05-27 03:00 | Inpatient (IN) | payer MEDICARE, MEDICAID ==
[~2022-05-27] VITALS: Ht 162.6 cm; Wt 74.6 kg
[~2022-05-27 03:00] MED LIST changes: +SIMV-341 PO; -SIMV10TA2 PO; -cocaine 4% topical solution 4ml bottle ONE; -diazepam 5mg tablet PO PRN; -famotidine 20mg tablet PO ONE; -mupirocin 2% ointment 22GM ONE; -oxymetazoline 15 ML nasal spray NS ONE; -oxymetazoline 15 ML nasal spray NS SCH; -ringers solution, lacted 1,000 ML IV SCH
[2022-05-27] MEDS ORDERED: morphine 4 MG/ML inj SYRINge IV ONE ×3 (04:45→15:45)
[2022-05-27] MEDS ORDERED: ondansetron/PF 4mg/2ml inj IV ONE ×3 (04:45→18:30)
[2022-05-27] MEDS ORDERED: acetaminophen 325mg tablet PO STA (05:22)
[2022-05-27] MEDS ORDERED: normal saline 1000ML IV soln IV ONE (05:25)
[2022-05-27] MEDS ORDERED: CefTRIAXone 2gm/D5W 50ml BAG 50 ML IV ONE (05:25)
[2022-05-27] MEDS ORDERED: metroNIDAZOLE-Flagyl 500mg/NS 100 ML IV ONE (05:25)
[2022-05-27 06:27] LABS: ALANINE AMINOTRANSFERASE 17 U/L (12-78); ALKALINE PHOSPHATASE 115 IU/L (46-116); ANION GAP 13 (8-16); ASPARTATE AMINO TRANSFERASE 26 U/L (10-37); BILIRUBIN,TOTAL 0.4 MG/DL (0.1-1.0); BLOOD UREA NITROGEN 14 MG/DL (7-18); BUN/CREATININE RATIO 9.8 (6.6-38.0); CHLORIDE 107 MMOL/L (99-107); CREATININE 1.43 MG/DL (0.40-0.90); GLUCOSE 145 MG/DL (70-104); HEMATOCRIT 36.6 % (35.0-45.0); HEMOGLOBIN 12.4 g/dl (12.0-16.0); LIPASE 88 U/L (73-393); MEAN CORPUSCULAR HEMOGLOBIN 29.3 PG (27.0-31.0); MEAN CORPUSCULAR HGB CONC 33.9 g/dL (33.0-36.5); MEAN CORPUSCULAR VOLUME 86.2 FL (78-98); MEAN PLATELET VOLUME 8.5 FL (7.4-10.4); PLATELET COUNT 205 X10'3 (140-440); POTASSIUM 3.9 MMOL/L (3.5-5.1); RED BLOOD COUNT 4.24 X10'6 (4.20-5.60); RED CELL DISTRIBUTION WIDTH 15.3 % (11.5-14.5); SODIUM 143 MMOL/L (135-145); TOTAL CARBON DIOXIDE 22.8 MMOL/L (24-32); TOTAL PROTEIN 8.1 G/DL (6.4-8.2); WHITE BLOOD COUNT 2.9 X10'3 (4.5-11.0); eGFR 36 ML/MIN
[2022-05-27 06:48] LABS: TOTAL CELLS COUNTED 100
[2022-05-27 06:49] LABS: PLATELET ESTIMATE NORMAL
[2022-05-27 06:50] LABS: POIKILOCYTOSIS FEW
[2022-05-27 06:59] LABS: CLARITY,URINE CLOUDY (Clear); COLOR,URINE STRAW (Yellow); GLUCOSE, URINE NEGATIVE (Neg); KETONES,URINE NEGATIVE (Neg); LEUKOCYTE ESTERASE ,URINE SMALL (Neg); NITRITES, URINE POSITIVE (Neg); OCCULT BLOOD,URINE MODERATE (Neg); PH,URINE 5.5 (4.8-8.0); PROTEIN,URINE 30 mg/dl (Neg); UA COLLECTION TYPE CLN CATCH MIDSTREAM; UROBILINOGEN,URINE 0.2 E.U/dL (0.2-1.0)
[2022-05-27 07:05] LABS: OCCULT BLOOD STOOL NEGATIVE (Neg)
[2022-05-27 07:08] LABS: SQUAMOUS EPITHELIAL CELL,UR FEW /LPF (FEW)
[2022-05-27 07:09] LABS: WBC CLUMPS,URINE MANY /HPF (NEGATIVE); WBC,URINE 50-100 /HPF (0-4)
[2022-05-27 07:10] LABS: BACTERIA,URINE 3+ /HPF (Neg); STARCH,URINE MANY /HPF (NEGATIVE)
[2022-05-27 07:36] LABS: URINE HCG NEGATIVE (NEG)
--- NOTE | 2022-05-27 10:02 | NUR ---
LACTIC 4.9, ER AWARE
[2022-05-27] MEDS ORDERED: normal saline 1000ML IV soln IVB ONE ×2 (10:10→14:30)
[2022-05-27] MEDS ORDERED: ringers solution, lactated 1000ml IV soln IV ONE (10:10)
--- NOTE | 2022-05-27 10:45 | NUR ---
Difficulty managing IV patency. Adequate vasculature minimal - second IV infiltrated. Attempting IV placement via ultrasound at this time. IVMF boluses still running through Left AC 20g.
[2022-05-27] MEDS ORDERED: mag hydrox/Alum hydrox/simeth 30ml oral suspension PO ONE (12:25)
[2022-05-27] MEDS ORDERED: TRAZ150T78 PO (12:36)
--- NOTE | 2022-05-27 13:04 | NUR ---
lactic 5.9, ER aware
[2022-05-27] MEDS ORDERED: piperacillin/tazo 3.375gm/50ml 50 ML IV ONE (14:30)
[2022-05-27] MEDS ORDERED: ipratropium/albuterol 3ml nebule NEB ONE (15:55)
[2022-05-27 16:18] LABS: ABG BASE EXCESS -6.8 mmol/L (-2.0-2.0); ABG HCO3 19.3 mmol/L (22.0-26.0); ABG OXYGEN SATURATION 96.8 % (94-97); ABG PCO2 (T) 41.1 mmHg (32.0-45.0); ABG PO2 (T) 101.1 mmHg (75.0-100.0); ALLEN'S TEST POSITIVE; FCOHb 0.3 % (0.0-3.9); FLOW 3 L/min; FMetHb 0.1 % (0.0-1.5); FO2Hb 96.4 % (94-97); TOTAL HEMOGLOBIN 10.6 G/dl (12.0-16.0)
[2022-05-27 16:26] LABS: BASOPHILS % (AUTO) 0.1 % (0-1); EOSINOPHILS % (AUTO) 0 % (0-6); HEMATOCRIT 30.4 % (35.0-45.0); LYMPHOCYTES # (AUTO) 0.6 X10'3 (1.1-4.8); MEAN CORPUSCULAR HEMOGLOBIN 28.7 PG (27.0-31.0); MEAN CORPUSCULAR VOLUME 87.2 FL (78-98); MEAN PLATELET VOLUME 7.6 FL (7.4-10.4); MONOCYTES # (AUTO) 0.8 X10'3 (0-0.9); MONOCYTES % (AUTO) 4.5 % (2-12); NEUTROPHILS # (AUTO) 17.5 X10'3 (1.8-7.7); NEUTROPHILS % (AUTO) 92.4 % (42-75); PLATELET COUNT 262 X10'3 (140-440); RED BLOOD COUNT 3.48 X10'6 (4.20-5.60); RED CELL DISTRIBUTION WIDTH 15.9 % (11.5-14.5); WHITE BLOOD COUNT 18.9 X10'3 (4.5-11.0)
[2022-05-27 16:33] LABS: ALANINE AMINOTRANSFERASE 20 U/L (12-78); ALBUMIN 3.1 G/DL (3.4-5.0); ALBUMIN/GLOBULIN RATIO 0.9 (1.1-1.5); ALKALINE PHOSPHATASE 83 IU/L (46-116); ANION GAP 11 (8-16); ASPARTATE AMINO TRANSFERASE 36 U/L (10-37); BILIRUBIN,TOTAL 0.2 MG/DL (0.1-1.0); BLOOD UREA NITROGEN 15 MG/DL (7-18); BUN/CREATININE RATIO 10.8 (6.6-38.0); CALCIUM 7.6 MG/DL (8.5-10.1); CHLORIDE 112 MMOL/L (99-107); CREATININE 1.39 MG/DL (0.40-0.90); GLUCOSE 120 MG/DL (70-104); POTASSIUM 4.2 MMOL/L (3.5-5.1); SODIUM 144 MMOL/L (135-145); TOTAL CARBON DIOXIDE 21.5 MMOL/L (24-32); TOTAL PROTEIN 6.7 G/DL (6.4-8.2); eGFR 37 ML/MIN
[2022-05-27 16:37] LABS: D-DIMER 11.21 MG/L FEU (0-0.50)
--- NOTE | 2022-05-27 17:18 | NUR ---
CALLED TO GIVE REPORT. RECEIVING RN ASKING FOR MEDICATION ORDERS FOR PAIN MANAGEMENT. DR. DEREK REINA
--- NOTE | 2022-05-27 17:28 | NUR ---
REPORT GIVEN, RECEIVING RN MADE AWARE OF PENDING ORDERS, AND PAGE TO DR. REED.
[2022-05-27] MEDS ORDERED: potassium CL 10mEq/100ml bag 100 ML IV PRN (17:30)
[2022-05-27] MEDS ORDERED: magnesium Cl slow-release 64mg tablet PO PRN (17:30)
[2022-05-27] MEDS ORDERED: acetaminophen 325mg tablet PO PRN ×2 (17:30→18:05)
[2022-05-27] MEDS ORDERED: magnesium 4gm in 100ml NS 100 ML IV PRN (17:30)
[2022-05-27] MEDS ORDERED: magnesium 2GM in 50ml NS 50 ML IV PRN (17:30)
[2022-05-27] MEDS ORDERED: POTASSIUM BICARB 20meq eff tab 20 MEQ TABLET.EFF PO PRN ×2 (17:30)
[2022-05-27] MEDS ORDERED: normal saline 1000ml 1,000 ML IV SCH (17:30)
--- NOTE | 2022-05-27 17:30 | NUR ---
Received report on pt who has admit order but no other orders for care and treatment. Pt demonstrating decomposition and is unsafe to have on unit without viable care orders. I had asked and ED Rn had tried contacting Dr Vargas for orders but was unable to do so. Notified Dr Tiwari of situation and was told "sorry" Called Dr Vargas on her personal cell phone. She indicated she was putting orders in and felt that with change in condition that pt was not suited for this unit and was admitting her to Tele. Notified Nursing Chief Of Planning and vice president payment.
--- NOTE | 2022-05-27 17:36 | NUR ---
PER PT DECLINIG CONDITION. DR. REED HAS ADMITTED PT TO PCU FOR HIGHER LEVEL OF CARE.
[2022-05-27 17:49] LABS: MAGNESIUM 1.5 MG/DL (1.5-2.4)
[2022-05-27] MEDS ORDERED: SIMV-45 PO (18:01)
[2022-05-27] MEDS ORDERED: ASPI-611 PO (18:01)
[2022-05-27] MEDS ORDERED: ACET-75 PO (18:01)
[2022-05-27] MEDS: morphine 2 MG/ML inj. syringe IV PRN (18:41)
--- NOTE | 2022-05-27 19:45 | NUR ---
Lactic Acid 5.2 , Wendi Seth made aware
[2022-05-27] MEDS ORDERED: LIDOcaine 2% 10ml TOPICAL JELLY (Urojet) TP ONE (19:55)
[2022-05-27] MEDS: K and/or MAG REPLACEMENT MC SCH (20:00)
[2022-05-27] MEDS: aspirin 81mg, enteric-coated 1 TAB TABLET.DR PO SCH (20:10)
[2022-05-27 20:39] LABS: CREATINE KINASE 156 U/L (26-192); PHOSPHORUS 2.8 MG/DL (2.3-4.5)
[2022-05-27 20:58] LABS: CLARITY,URINE CLEAR (Clear); COLOR,URINE YELLOW (Yellow); GLUCOSE, URINE NEGATIVE (Neg); KETONES,URINE NEGATIVE (Neg); LEUKOCYTE ESTERASE ,URINE NEGATIVE (Neg); NITRITES, URINE NEGATIVE (Neg); OCCULT BLOOD,URINE TRACE-INTACT (Neg); PROTEIN,URINE NEGATIVE (Neg); UA COLLECTION TYPE STRAIGHT CATH; UROBILINOGEN,URINE 0.2 E.U/dL (0.2-1.0)
[2022-05-27 21:18] LABS: RBC,URINE 0-2 /HPF (0-2); WBC,URINE 20-30 /HPF (0-4)
[2022-05-27 21:19] LABS: BACTERIA,URINE NONE SEEN /HPF (Neg); MUCUS STRANDS FEW /LPF (Neg); SQUAMOUS EPITHELIAL CELL,UR NONE SEEN /LPF (FEW); WBC CLUMPS,URINE MODERATE /HPF (NEGATIVE)
[2022-05-27 22:35] VITALS: BP 97/39
--- NOTE | 2022-05-27 22:35 | NUR ---
Patient received to the unit 3028B from ED12. Patient vitals BP 97/53, HR 85, O2 95%, R 18, T 100.0. Patient c/o generalized pain and nausea. Patient was given Morphine 2gm IV for pain and Zofran 4mg for N/V. Patient A&Ox4. No acute distress noted. Will continue to monitor patient.
[2022-05-27] MEDS ORDERED: ondansetron/PF 4mg/2ml inj IV PRN (23:55)
[2022-05-28] VITALS (13 sets, daily range): BP systolic 98–147; BP diastolic 43–79
[2022-05-28] MEDS: morphine 2 MG/ML inj. syringe IV PRN (00:05)
[2022-05-28] MEDS ORDERED: CefTRIAXone/D5W-Rocephin 1gm 50 ML IV STA (01:37)
[2022-05-28 06:38] LABS: BASOPHILS # (AUTO) 0.1 X10'3 (0-0.2); BASOPHILS % (AUTO) 0.5 % (0-1); EOSINOPHILS % (AUTO) 0.1 % (0-6); HEMATOCRIT 25.5 % (35.0-45.0); HEMOGLOBIN 8.3 g/dl (12.0-16.0); LYMPHOCYTES # (AUTO) 1.1 X10'3 (1.1-4.8); MEAN CORPUSCULAR HGB CONC 32.3 g/dL (33.0-36.5); MEAN CORPUSCULAR VOLUME 86.7 FL (78-98); MEAN PLATELET VOLUME 8.2 FL (7.4-10.4); MONOCYTES # (AUTO) 1.2 X10'3 (0-0.9); MONOCYTES % (AUTO) 8.4 % (2-12); NEUTROPHILS # (AUTO) 11.8 X10'3 (1.8-7.7); PLATELET COUNT 179 X10'3 (140-440); RED BLOOD COUNT 2.95 X10'6 (4.20-5.60); WHITE BLOOD COUNT 14.2 X10'3 (4.5-11.0)
[2022-05-28 06:51] LABS: ALBUMIN 2.5 G/DL (3.4-5.0); ANION GAP 10 (8-16); BLOOD UREA NITROGEN 15 MG/DL (7-18); BUN/CREATININE RATIO 12.1 (6.6-38.0); CALCIUM 7.5 MG/DL (8.5-10.1); CHLORIDE 111 MMOL/L (99-107); CREATININE 1.24 MG/DL (0.40-0.90); GLUCOSE 99 MG/DL (70-104); MAGNESIUM 1.8 MG/DL (1.5-2.4); POTASSIUM 3.9 MMOL/L (3.5-5.1); SODIUM 144 MMOL/L (135-145); TOTAL CARBON DIOXIDE 23.5 MMOL/L (24-32); eGFR 43 ML/MIN
[2022-05-28] MEDS ORDERED: iohexol 300 MG/1 ML 10ml vial ONE (07:55)
[2022-05-28] MEDS: losartan 50mg tablet PO SCH (08:00)
[2022-05-28] MEDS: aspirin 81mg, enteric-coated 1 TAB TABLET.DR PO SCH (08:00)
[2022-05-28] MEDS: atorvastatin 20mg tablet PO SCH (08:00)
--- NOTE | 2022-05-28 08:10 | NUR ---
PAGER ID: [phone] MESSAGE: Irais Wolf [id number] Pt. has lactic above 5 and is NPO for procedure. Should have fluids running??? Also need order for rectal Tylenol suppository for fevers. PO already given. Thank you Emely [phone]
[2022-05-28] MEDS: HYDROcodone/acetaminophen 5mg/325mg tablet PO PRN (08:25)
--- NOTE | 2022-05-28 08:40 | NUR ---
PT. TAKEN OFF FLOOR TO OR BY OR STAFF.
[2022-05-28] MEDS ORDERED: fentaNYL/PF 50MCG/1 ML 2ML syringe ONE (09:04)
[2022-05-28] MEDS ORDERED: LIDOcaine 2% (20mg/ml) 5ml vial ONE (09:33)
[2022-05-28] MEDS ORDERED: sugammadex 200mg/2ml injection IV ONE (09:33)
[2022-05-28] MEDS ORDERED: ondansetron/PF 4mg/2ml inj ONE (09:33)
[2022-05-28] MEDS ORDERED: dexamethasone sod phosphate 4mg/ml inj. ONE (09:33)
[2022-05-28] MEDS ORDERED: rocuronium 10mg/ml inj IV ONE (09:33)
[2022-05-28] MEDS ORDERED: propofol inj 20 ML IV ONE (09:33)
--- NOTE | 2022-05-28 09:46 | NUR ---
Received from OR via , accompanied by Anesthesiologist Dr Bhatti and report given by Anesthesiolgist.VSS, IV 20G IN THE LEFT AC. LR 100, F/C WITH TNGED RED BLOOD. O2 10 LITERS WITH MASK Addendum: 05/28/22 at 0954 by Kristi Altman RN Amended: Links added.
--- NOTE | 2022-05-28 10:10 | NUR ---
RN REOMVED BOTH DENTURES FROM THE CASE AND GAVE TO PATIENT TO INSERT IN HER MOUHT. PATIENT CURRENTLY HAS BOTH UPPER AND LOWER DENTURES IN HER MOUTH. Addendum: 05/28/22 at 1013 by Kristi Altman RN Amended: Links added.
--- NOTE | 2022-05-28 10:36 | NUR ---
PATIENT MEETS DISCHARGE CRITERIA. VSS. IV INTACT. PATIENT STATES SOME DISCOMFORT BUT TO BE EXPECTED. TRANSFERRED TO THE FLOOR. REPORT GIVEN TO RN. ALBARRAN STARTED VITALS. I WAITED UNTIL A FULL SET OF VITALS WERE DONE. CHECKED O2 AND ALSO GOVE REPORT TO CHARGE NURSE SINCE TN WAS NOT ABLE TO COME TO THE BEDSIDE. Addendum: 05/28/22 at 1052 by Kristi Altman RN Amended: Links added.
--- NOTE | 2022-05-28 11:59 | NUR ---
PAGER ID: [phone] MESSAGE: Irais Wolf [id number] Can you call regarding this pt. Thank you Emely [phone]
[2022-05-28] MEDS: normal saline 1000ml 1,000 ML IV SCH ×2 (12:25→22:45)
[2022-05-28] MEDS ORDERED: mag hydrox/Alum hydrox/simeth 30ml oral suspension PO ONE (13:55)
[2022-05-28] MEDS: CefTRIAXone/D5W-Rocephin 1gm 50 ML IV SCH (14:02)
--- NOTE | 2022-05-28 18:26 | NUR ---
Gave report to Teodoro ACOSTA.
[2022-05-29] MEDS: HYDROcodone/acetaminophen 5mg/325mg tablet PO PRN ×3 (00:31→19:11)
[2022-05-29] MEDS: CefTRIAXone/D5W-Rocephin 1gm 50 ML IV SCH (02:36)
[2022-05-29 03:05] VITALS: BP 105/79
[2022-05-29] MEDS ORDERED: mag hydrox/Alum hydrox/simeth 30ml oral suspension PO ONE (05:35)
[2022-05-29 06:00] VITALS: BP 152/80
[2022-05-29 06:44] LABS: BASOPHILS % (AUTO) 0.2 % (0-1); EOSINOPHILS % (AUTO) 0.2 % (0-6); HEMOGLOBIN 9.1 g/dl (12.0-16.0); LYMPHOCYTES % (AUTO) 5.9 % (21-51); MEAN CORPUSCULAR HGB CONC 32.5 g/dL (33.0-36.5); MEAN CORPUSCULAR VOLUME 86.2 FL (78-98); MEAN PLATELET VOLUME 8.7 FL (7.4-10.4); MONOCYTES % (AUTO) 5.9 % (2-12); NEUTROPHILS # (AUTO) 15.4 X10'3 (1.8-7.7); NEUTROPHILS % (AUTO) 87.8 % (42-75); PLATELET COUNT 177 X10'3 (140-440); RED BLOOD COUNT 3.24 X10'6 (4.20-5.60); RED CELL DISTRIBUTION WIDTH 16.4 % (11.5-14.5); WHITE BLOOD COUNT 17.6 X10'3 (4.5-11.0)
--- NOTE | 2022-05-29 06:53 | NUR ---
Patient in room PCU 3028. I have received report from KARLA Valerio and had the opportunity to ask questions and assume patient care.
[2022-05-29 06:55] LABS: % IRON SATURATION 8 % (11-46); IRON 20 UG/DL (49-151); TOTAL IRON BINDING CAPACITY 264 UG/DL (259-388)
--- NOTE | 2022-05-29 07:05 | NUR ---
Problems reprioritized. Patient report given, questions answered & plan of care reviewed with Laura. Addendum: 05/29/22 at 0705 by Ilia Mejia RN Amended: Links added.
--- NOTE | 2022-05-29 07:22 | NUR ---
Problems reprioritized. Patient report given, questions answered & plan of care reviewed with Laura. Addendum: 05/29/22 at 0722 by Ilia Mejia RN Amended: Links added.
[2022-05-29] MEDS: K and/or MAG REPLACEMENT MC SCH ×2 (08:00→20:20)
[2022-05-29 08:03] LABS: ALBUMIN 2.9 G/DL (3.4-5.0); ANION GAP 8 (8-16); BLOOD UREA NITROGEN 15 MG/DL (7-18); BUN/CREATININE RATIO 14.6 (6.6-38.0); CALCIUM 8.2 MG/DL (8.5-10.1); CHLORIDE 111 MMOL/L (99-107); CREATININE 1.03 MG/DL (0.40-0.90); FERRITIN 86 NG/ML (8-252); GLUCOSE 122 MG/DL (70-104); MAGNESIUM 2.2 MG/DL (1.5-2.4); POTASSIUM 4.2 MMOL/L (3.5-5.1); SODIUM 142 MMOL/L (135-145); TOTAL CARBON DIOXIDE 22.8 MMOL/L (24-32); eGFR 53 ML/MIN
[2022-05-29] MEDS: normal saline 1000ml 1,000 ML IV SCH (08:25)
[2022-05-29] MEDS: aspirin 81mg, enteric-coated 1 TAB TABLET.DR PO SCH (09:04)
[2022-05-29] MEDS: atorvastatin 20mg tablet PO SCH (09:04)
[2022-05-29] MEDS: losartan 50mg tablet PO SCH (09:05)
[2022-05-29 11:00] VITALS: BP 125/64
--- NOTE | 2022-05-29 13:10 | NUR ---
Pt C/o difficulty swallowing and sore throat, SOB w/o exertion though O2 sat 97% on 2 lpm nc. Viewed throat which was red posteriorly, no swelling or enlargement of tonsils noted. Pt states she had a great deal of vomiting prior to admit. Advised small bites, chewing well, and report any choking.
[2022-05-29] MEDS: pantoprazole 40mg Tablet.DR PO SCH (14:22)
[2022-05-29] MEDS: cephalexin 500mg capsule PO SCH ×2 (14:22→19:10)
[2022-05-29 15:00] VITALS: BP_SYST 125; BP_SYST 161; BP_DIAS 64; BP_DIAS 85
[2022-05-29] MEDS ORDERED: ondansetron 4mg rapidly disintigrating tab PO PRN (16:00)
[2022-05-29 18:00] VITALS: BP 164/76
--- NOTE | 2022-05-29 18:28 | NUR ---
Patient in room PCU 3028. I have received report from KARLA Sanchez and had the opportunity to ask questions and assume patient care.
--- NOTE | 2022-05-29 18:37 | NUR ---
Problems reprioritized. Patient report given, questions answered & plan of care reviewed with KARLA Wills.
[2022-05-29 22:00] VITALS: BP 141/54
--- NOTE | 2022-05-29 23:55 | NUR ---
Patient complaining of headache, body aches and sore throat. She says "I feel like I have the flu". I will order a COVID test on her.
[2022-05-30 02:00] VITALS: BP 135/65
[2022-05-30] MEDS: cephalexin 500mg capsule PO SCH ×4 (02:21→19:57)
[2022-05-30] MEDS: HYDROcodone/acetaminophen 5mg/325mg tablet PO PRN ×4 (02:25→19:57)
--- NOTE | 2022-05-30 06:21 | NUR ---
Problems reprioritized. Patient report given, questions answered & plan of care reviewed with KARLA Hill.
[2022-05-30 07:03] LABS: BASOPHILS # (AUTO) 0.1 X10'3 (0-0.2); BASOPHILS % (AUTO) 0.7 % (0-1); EOSINOPHILS # (AUTO) 0.2 X10'3 (0-0.9); EOSINOPHILS % (AUTO) 1.5 % (0-6); HEMATOCRIT 25.9 % (35.0-45.0); HEMOGLOBIN 8.6 g/dl (12.0-16.0); LYMPHOCYTES # (AUTO) 1.3 X10'3 (1.1-4.8); LYMPHOCYTES % (AUTO) 12.9 % (21-51); MEAN CORPUSCULAR HEMOGLOBIN 28.5 PG (27.0-31.0); MEAN CORPUSCULAR HGB CONC 33.1 g/dL (33.0-36.5); MEAN PLATELET VOLUME 8.6 FL (7.4-10.4); MONOCYTES # (AUTO) 0.6 X10'3 (0-0.9); MONOCYTES % (AUTO) 6.3 % (2-12); NEUTROPHILS % (AUTO) 78.6 % (42-75); PLATELET COUNT 162 X10'3 (140-440); RED BLOOD COUNT 3.02 X10'6 (4.20-5.60); RED CELL DISTRIBUTION WIDTH 15.6 % (11.5-14.5); WHITE BLOOD COUNT 10.2 X10'3 (4.5-11.0)
[2022-05-30 07:10] LABS: CHLORIDE 110 MMOL/L (99-107); GLUCOSE 98 MG/DL (70-104); POTASSIUM 3.7 MMOL/L (3.5-5.1); SODIUM 143 MMOL/L (135-145); TOTAL CARBON DIOXIDE 25.2 MMOL/L (24-32)
[2022-05-30 07:11] LABS: ALBUMIN 2.8 G/DL (3.4-5.0); ANION GAP 8 (8-16); BLOOD UREA NITROGEN 12 MG/DL (7-18); BUN/CREATININE RATIO 12.6 (6.6-38.0); CALCIUM 8.4 MG/DL (8.5-10.1); CREATININE 0.95 MG/DL (0.40-0.90); eGFR 58 ML/MIN
[2022-05-30] MEDS: aspirin 81mg, enteric-coated 1 TAB TABLET.DR PO SCH (07:45)
[2022-05-30] MEDS: losartan 50mg tablet PO SCH (07:46)
[2022-05-30] MEDS: pantoprazole 40mg Tablet.DR PO SCH (07:46)
[2022-05-30] MEDS: atorvastatin 20mg tablet PO SCH (07:46)
[2022-05-30] MEDS: K and/or MAG REPLACEMENT MC SCH ×2 (08:00→20:00)
[2022-05-30 10:54] VITALS: BP 110/52
--- NOTE | 2022-05-30 16:00 | NUR ---
Fregoso removed without complications at 1530. Waiting for pt to void.
[2022-05-30 18:00] VITALS: BP 140/60
--- NOTE | 2022-05-30 18:25 | NUR ---
Patient in room PCU 3028. I have received report from KARLA Hill and had the opportunity to ask questions and assume patient care. Fregoso was removed today and patient says she feels much better.
--- NOTE | 2022-05-30 19:02 | NUR ---
Problems reprioritized. Patient report given, questions answered & plan of care reviewed with KARLA Schmidt.
[2022-05-30 22:00] VITALS: BP 124/62
[2022-05-31 02:00] VITALS: BP 166/77
[2022-05-31] MEDS: cephalexin 500mg capsule PO SCH ×4 (02:18→21:32)
--- NOTE | 2022-05-31 06:21 | NUR ---
Problems reprioritized. Patient report given, questions answered & plan of care reviewed with KARLA Redmond.
--- NOTE | 2022-05-31 06:22 | NUR ---
Patient in room PCU 3028. I have received report from DORIAN ACOSTA and had the opportunity to ask questions and assume patient care.
[2022-05-31 06:39] LABS: ALBUMIN 2.8 G/DL (3.4-5.0); ANION GAP 10 (8-16); BLOOD UREA NITROGEN 9 MG/DL (7-18); BUN/CREATININE RATIO 9.4 (6.6-38.0); CALCIUM 8.5 MG/DL (8.5-10.1); CHLORIDE 108 MMOL/L (99-107); CREATININE 0.96 MG/DL (0.40-0.90); GLUCOSE 93 MG/DL (70-104); POTASSIUM 3.5 MMOL/L (3.5-5.1); SODIUM 141 MMOL/L (135-145); TOTAL CARBON DIOXIDE 23.3 MMOL/L (24-32); eGFR 57 ML/MIN
[2022-05-31 06:42] LABS: BASOPHILS # (AUTO) 0.1 X10'3 (0-0.2); BASOPHILS % (AUTO) 0.8 % (0-1); EOSINOPHILS # (AUTO) 0.3 X10'3 (0-0.9); EOSINOPHILS % (AUTO) 3.9 % (0-6); HEMATOCRIT 31.2 % (35.0-45.0); LYMPHOCYTES # (AUTO) 1.7 X10'3 (1.1-4.8); LYMPHOCYTES % (AUTO) 22.9 % (21-51); MEAN CORPUSCULAR HEMOGLOBIN 28.1 PG (27.0-31.0); MEAN CORPUSCULAR VOLUME 87.7 FL (78-98); MONOCYTES # (AUTO) 0.8 X10'3 (0-0.9); MONOCYTES % (AUTO) 10.3 % (2-12); NEUTROPHILS # (AUTO) 4.6 X10'3 (1.8-7.7); NEUTROPHILS % (AUTO) 62.1 % (42-75); PLATELET COUNT 199 X10'3 (140-440); RED BLOOD COUNT 3.56 X10'6 (4.20-5.60); RED CELL DISTRIBUTION WIDTH 16.2 % (11.5-14.5); WHITE BLOOD COUNT 7.5 X10'3 (4.5-11.0)
[2022-05-31 07:15] VITALS: BP 135/59
[2022-05-31] MEDS: K and/or MAG REPLACEMENT MC SCH ×2 (07:45→20:00)
[2022-05-31] MEDS: aspirin 81mg, enteric-coated 1 TAB TABLET.DR PO SCH (07:48)
[2022-05-31] MEDS: HYDROcodone/acetaminophen 5mg/325mg tablet PO PRN ×3 (07:48→21:31)
[2022-05-31] MEDS: pantoprazole 40mg Tablet.DR PO SCH (07:48)
[2022-05-31] MEDS: atorvastatin 20mg tablet PO SCH (07:48)
[2022-05-31] MEDS: losartan 50mg tablet PO SCH (07:49)
[2022-05-31] MEDS ORDERED: magnesium citrate 296ml oral solution PO ONE (08:10)
[2022-05-31] MEDS ORDERED: magnesium hydroxide 30ml (MOM) UD suspension PO ONE (09:25)
--- NOTE | 2022-05-31 09:36 | NUR ---
PAGER ID: [phone] MESSAGE: FLORENTINO WARD. MAG CITRATE NOT AVAILABLE, PT REFUSING MOM. WOULD YOU LIKE TO ORDER AN ALTERNATIVE? GONZALO [address] [facility]
[2022-05-31] MEDS: sennosides/docusate sodium tablet PO SCH ×2 (10:51→21:32)
[2022-05-31 11:08] VITALS: BP 94/55
[2022-05-31] MEDS ORDERED: furosemide 20MG tablet PO ONE (15:00)
[2022-05-31 15:16] VITALS: BP 144/65
[2022-05-31 18:00] VITALS: BP 147/50
--- NOTE | 2022-05-31 18:42 | NUR ---
Problems reprioritized. Patient report given, questions answered & plan of care reviewed with NAVNEET ACOSTA.
--- NOTE | 2022-05-31 18:45 | NUR ---
Patient in room PCU 3028. I have received report from PHIL Redmond and had the opportunity to ask questions and assume patient care.
[2022-05-31 22:00] VITALS: BP 151/69
[2022-06-01 02:00] VITALS: BP 140/59
[2022-06-01] MEDS: cephalexin 500mg capsule PO SCH ×2 (04:10→09:07)
[2022-06-01 06:00] VITALS: BP 157/64
[2022-06-01 06:00] LABS: ALBUMIN 2.6 G/DL (3.4-5.0); ANION GAP 9 (8-16); BLOOD UREA NITROGEN 8 MG/DL (7-18); BUN/CREATININE RATIO 9.2 (6.6-38.0); CALCIUM 8.4 MG/DL (8.5-10.1); CHLORIDE 105 MMOL/L (99-107); CREATININE 0.87 MG/DL (0.40-0.90); GLUCOSE 109 MG/DL (70-104); POTASSIUM 3.2 MMOL/L (3.5-5.1); SODIUM 144 MMOL/L (135-145); TOTAL CARBON DIOXIDE 30.3 MMOL/L (24-32); eGFR 64 ML/MIN
--- NOTE | 2022-06-01 06:01 | NUR ---
Patient drank 120 ml plum juice for bowel care.
[2022-06-01 06:13] LABS: BASOPHILS % (AUTO) 0.7 % (0-1); EOSINOPHILS # (AUTO) 0.2 X10'3 (0-0.9); EOSINOPHILS % (AUTO) 4.3 % (0-6); HEMATOCRIT 26.4 % (35.0-45.0); HEMOGLOBIN 8.8 g/dl (12.0-16.0); LYMPHOCYTES # (AUTO) 1.1 X10'3 (1.1-4.8); LYMPHOCYTES % (AUTO) 20.1 % (21-51); MEAN CORPUSCULAR HEMOGLOBIN 28.5 PG (27.0-31.0); MEAN CORPUSCULAR HGB CONC 33.5 g/dL (33.0-36.5); MEAN PLATELET VOLUME 8.6 FL (7.4-10.4); MONOCYTES # (AUTO) 0.6 X10'3 (0-0.9); MONOCYTES % (AUTO) 11.8 % (2-12); NEUTROPHILS # (AUTO) 3.5 X10'3 (1.8-7.7); NEUTROPHILS % (AUTO) 63.1 % (42-75); PLATELET COUNT 230 X10'3 (140-440); RED CELL DISTRIBUTION WIDTH 15.6 % (11.5-14.5); WHITE BLOOD COUNT 5.5 X10'3 (4.5-11.0)
--- NOTE | 2022-06-01 07:00 | NUR ---
Problems reprioritized. Patient report given to RN Emely, questions answered & plan of care reviewed with .
--- NOTE | 2022-06-01 07:43 | NUR ---
Initial: Pt admitted w/ sepsis and L ureteral stones per EMR, though sepsis has not been resolved per MD note. Pt on Regular diet w/ low PO intake, avg 38% of meals not meeting needs. Pt has not had BM this admit and has been having abd pain per documentation, likely impacting PO trends. Pt receiving routine Senna. D/w dietary to send prunes and prune juice w/ next meal. Recommend additional bowel care if constipation persists. Will continue to monitor. Recs: 1. Continue Regular diet as tolerated 2. Monitor need for ONS if PO does not improve following BM 3. Routine bowel care, at least 5 days constipation 4. Weekly wts Addendum: 06/01/22 at [address] Amended: Links added.
[2022-06-01] MEDS: K and/or MAG REPLACEMENT MC SCH ×2 (08:00→20:36)
[2022-06-01] MEDS: atorvastatin 20mg tablet PO SCH (09:07)
[2022-06-01] MEDS: aspirin 81mg, enteric-coated 1 TAB TABLET.DR PO SCH (09:07)
[2022-06-01] MEDS: pantoprazole 40mg Tablet.DR PO SCH (09:07)
[2022-06-01] MEDS: HYDROcodone/acetaminophen 5mg/325mg tablet PO PRN ×3 (09:08→20:45)
[2022-06-01] MEDS: losartan 50mg tablet PO SCH (09:08)
[2022-06-01] MEDS: sennosides/docusate sodium tablet PO SCH ×2 (09:08→20:45)
--- NOTE | 2022-06-01 09:16 | NUR ---
O2 Sat at rest on room air:__93_% If below 89%: Recovery O2 Sat at rest on ___LPM:___%:___% via (mask/nasal cannula, etc..) No further documentation is necessary. If O2 Sat did not drop below 89% on room air,ambulate patient on room air. O2 Sat while ambulating on room air:__91_% Recovery O2 Sat while ambulating on ___LPM:___% No further documentation is necessary. If patient does not drop below 89% while ambulating, he/she does not qualify for home O2.
--- NOTE | 2022-06-01 09:35 | NUR ---
PAGER ID: [phone] MESSAGE: Irais Wolf [id number] pt. has not pooped for a week. Can I have MOM and suppose. order please? She could go home today... Also k low 3.2 and no replacement ordered. Emely [phone]
[2022-06-01] MEDS ORDERED: potassium Cl 20 mEq SR tablet PO ONE (09:50)
[2022-06-01] MEDS ORDERED: magnesium hydroxide 30ml (MOM) UD suspension PO PRN (09:50)
[2022-06-01 11:21] VITALS: BP 138/70
[2022-06-01] MEDS ORDERED: PANT40TA54 PO (13:00)
--- NOTE | 2022-06-01 14:53 | NUR ---
Ivett PICC RN.
[2022-06-01 15:00] VITALS: BP 157/75
--- NOTE | 2022-06-01 15:01 | NUR ---
PAGER ID: [phone] MESSAGE: Irais Wolf [id number] Pt. has no PIV for IV antibiotics. Apparently you gave Nyla ACOSTA an OK to not have PIV order yesterday? It was not charted per report. Called PICC RN to place IV. Emely [phone]
[2022-06-01] MEDS: CefTRIAXone/D5W-Rocephin 1gm 50 ML IV SCH (15:34)
[2022-06-01 18:00] VITALS: BP 130/73
--- NOTE | 2022-06-01 18:29 | NUR ---
Gave report to Cong ACOSTA.
[2022-06-01 22:00] VITALS: BP 130/57
[2022-06-02 02:00] VITALS: BP 128/64
--- NOTE | 2022-06-02 06:31 | NUR ---
Patient in room PCU 3028. I have received report from Cong ACOSTA and had the opportunity to ask questions and assume patient care.
[2022-06-02 07:00] VITALS: BP 153/81
[2022-06-02] MEDS: K and/or MAG REPLACEMENT MC SCH ×2 (08:00→20:00)
[2022-06-02] MEDS: pantoprazole 40mg Tablet.DR PO SCH (08:01)
[2022-06-02] MEDS: CefTRIAXone/D5W-Rocephin 1gm 50 ML IV SCH (08:01)
[2022-06-02] MEDS: atorvastatin 20mg tablet PO SCH (08:03)
[2022-06-02] MEDS: losartan 50mg tablet PO SCH (08:03)
[2022-06-02] MEDS: aspirin 81mg, enteric-coated 1 TAB TABLET.DR PO SCH (08:03)
[2022-06-02] MEDS: sennosides/docusate sodium tablet PO SCH ×2 (08:04→20:01)
[2022-06-02] MEDS: HYDROcodone/acetaminophen 5mg/325mg tablet PO PRN ×2 (08:07→20:02)
[2022-06-02 09:13] LABS: BASOPHILS % (AUTO) 0.8 % (0-1); EOSINOPHILS # (AUTO) 0.2 X10'3 (0-0.9); EOSINOPHILS % (AUTO) 2.5 % (0-6); HEMATOCRIT 30.9 % (35.0-45.0); HEMOGLOBIN 10.1 g/dl (12.0-16.0); LYMPHOCYTES # (AUTO) 1.1 X10'3 (1.1-4.8); LYMPHOCYTES % (AUTO) 16.9 % (21-51); MEAN CORPUSCULAR HEMOGLOBIN 27.8 PG (27.0-31.0); MEAN CORPUSCULAR HGB CONC 32.6 g/dL (33.0-36.5); MEAN CORPUSCULAR VOLUME 85.3 FL (78-98); MEAN PLATELET VOLUME 8.3 FL (7.4-10.4); MONOCYTES # (AUTO) 0.5 X10'3 (0-0.9); MONOCYTES % (AUTO) 7.1 % (2-12); NEUTROPHILS # (AUTO) 4.7 X10'3 (1.8-7.7); NEUTROPHILS % (AUTO) 72.7 % (42-75); PLATELET COUNT 289 X10'3 (140-440); RED BLOOD COUNT 3.63 X10'6 (4.20-5.60); WHITE BLOOD COUNT 6.5 X10'3 (4.5-11.0)
[2022-06-02 09:29] LABS: ALANINE AMINOTRANSFERASE 17 U/L (12-78); ALBUMIN 2.8 G/DL (3.4-5.0); ALBUMIN/GLOBULIN RATIO 0.7 (1.1-1.5); ALKALINE PHOSPHATASE 88 IU/L (46-116); ANION GAP 5 (8-16); ASPARTATE AMINO TRANSFERASE 19 U/L (10-37); BILIRUBIN,TOTAL 0.2 MG/DL (0.1-1.0); BLOOD UREA NITROGEN 7 MG/DL (7-18); BUN/CREATININE RATIO 6.8 (6.6-38.0); CALCIUM 8.5 MG/DL (8.5-10.1); CHLORIDE 103 MMOL/L (99-107); CREATININE 1.03 MG/DL (0.40-0.90); GLUCOSE 163 MG/DL (70-104); SODIUM 140 MMOL/L (135-145); TOTAL CARBON DIOXIDE 31.7 MMOL/L (24-32); TOTAL PROTEIN 6.8 G/DL (6.4-8.2); eGFR 53 ML/MIN
[2022-06-02 10:00] VITALS: BP 143/64
[2022-06-02 15:00] VITALS: BP 125/74
[2022-06-02 18:00] VITALS: BP 140/64
--- NOTE | 2022-06-02 18:52 | NUR ---
patient seen and evaluated by Dr Martinez. No new orders. continues on IV ABX. All cares given. Report given to nasim ACOSTA
--- NOTE | 2022-06-02 19:42 | NUR ---
Patient in room PCU 3028. I have received report from KARLA Zamorano and had the opportunity to ask questions and assume patient care.
[2022-06-02 20:00] VITALS: BP 143/69
[2022-06-03 02:00] VITALS: BP 141/61
[2022-06-03 06:00] VITALS: BP 145/68
--- NOTE | 2022-06-03 06:49 | NUR ---
Patient in room PCU 3028. I have received report from KARLA Gar and had the opportunity to ask questions and assume patient care.
--- NOTE | 2022-06-03 07:02 | NUR ---
Problems reprioritized. Patient report given to RN Liz, questions answered & plan of care reviewed with .
[2022-06-03] MEDS: K and/or MAG REPLACEMENT MC SCH (08:00)
[2022-06-03 08:03] VITALS: BP_SYST 145
[2022-06-03] MEDS: sennosides/docusate sodium tablet PO SCH (08:03)
[2022-06-03] MEDS: losartan 50mg tablet PO SCH (08:03)
[2022-06-03] MEDS: pantoprazole 40mg Tablet.DR PO SCH (08:04)
[2022-06-03] MEDS: HYDROcodone/acetaminophen 5mg/325mg tablet PO PRN (08:04)
[2022-06-03] MEDS: aspirin 81mg, enteric-coated 1 TAB TABLET.DR PO SCH (08:04)
[2022-06-03] MEDS: atorvastatin 20mg tablet PO SCH (08:05)
[2022-06-03] MEDS: CefTRIAXone/D5W-Rocephin 1gm 50 ML IV SCH (08:05)
[2022-06-03] MEDS ORDERED: CEFD300C3 PO (09:15)
--- NOTE | 2022-06-03 11:29 | NUR ---
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 IV discontinued, no complications. All questions answered. pt provided folder with discharge education.
--- NOTE | 2022-06-05 15:45 | NUR ---
Case Management DC follow up: Spoke with Patient via telephone. S/P: Patient Reports: Denies: Acute/continuous CP. Verbalizes she is experiencing increase SOB with mild activity. Denies N/V, chills. Denies hematuria, and/or dysuria.Verbalizes she has pain at lateral left of umbilicus; however,she is now having a dull pain inferior and lateral left of umbilicus. Verbalizes she has been running a low grade fever of 99.4 ; however, when last checked it was a normal 98.6.Verbalizes she has taken Tylenol for pain and temp.Verbalizing she has been using her Incentive Spirometer, and confirmed she has been taking her antibiotic as prescribed.Verbalizes retention after voiding, and now is experiencing incontinence of urine. Recommended she return to ER for further evaluation.
== END 2022-06-03 11:27 | disposition home or self-care (01) | DRG 853 ==
LOC: ER 03:01 → ED HOLD 10:56 → EDBEDREQ 14:57 → CANBEDREQ 17:33 → EDBEDREQ 21:35 → PCU 3S 22:30
PROVIDERS: ADMIT Internal Medicine; ATTEND Internal Medicine
PROC: CB121ZZ Planar Nuclear Medicine Imaging of Lungs and Bronchi using Technetium 99m (Tc-99m) (ICD-10-PCS; 2022-05-28)
PROC: 0T778DZ Dilation of Left Ureter with Intraluminal Device, Via Natural or Artificial Opening Endoscopic (ICD-10-PCS; principal; 2022-05-28 09:06)
DX: A41.51 Sepsis due to Escherichia coli [E. coli] (principal); N17.0 Acute kidney failure with tubular necrosis; N13.6 Pyonephrosis; Z20.822 Contact with and (suspected) exposure to COVID-19; B96.20 Unspecified Escherichia coli [E. coli] as the cause of diseases classified elsewhere; E78.00 Pure hypercholesterolemia, unspecified; D64.9 Anemia, unspecified; I10 Essential (primary) hypertension; K21.9 Gastro-esophageal reflux disease without esophagitis; R09.02 Hypoxemia; Z96.641 Presence of right artificial hip joint; B19.20 Unspecified viral hepatitis C without hepatic coma; G89.29 Other chronic pain; M54.9 Dorsalgia, unspecified; Z90.711 Acquired absence of uterus with remaining cervical stump; Z88.5 Allergy status to narcotic agent; Z79.899 Other long term (current) drug therapy
CPT/HCPCS: 36415; 36600; 71045; 71046; 74176; 76000; 78582; 80048; 80053; 81001; 81025; 82272; 82550; 82607; 82728; 82803; 82948; 83540; 83550; 83605; 83690; 83735; 83880; 84100; 84145; 84443; 84484; 85007; 85018; 85025; 85379; 85730; 87040; 87077; 87081; 87088; 87186; 87635; 93005; 93970; 94640; 94760; 96365; 96366; 96368; 96375; 96376; 99285; A4314; A4615; A4618; A4620; A9539; A9540; C1758; C1769; C2617; G0378; J0696; J1100; J2270; J2405; J2704; J3010; J3490; J7030; J7120; Q9967

== ENCOUNTER 2022-06-05 17:02 | Emergency (ER) | payer MEDICARE, MEDICAID ==
[~2022-06-05] VITALS: Ht 162.6 cm; Wt 75.0 kg
[~2022-06-05 17:02] MED LIST changes: +ACET-75 PO; +CEFD300C3 PO; -GABA-530 PO; -HYDR-3686 PO; -HYDR-3972 PO; -PANT20TA18 PO; +PANT40TA54 PO; -SIMV-341 PO; +SIMV-45 PO
[2022-06-05 18:17] LABS: BASOPHILS # (AUTO) 0.1 X10'3 (0-0.2); BASOPHILS % (AUTO) 0.7 % (0-1); EOSINOPHILS # (AUTO) 0.2 X10'3 (0-0.9); EOSINOPHILS % (AUTO) 2.5 % (0-6); HEMATOCRIT 34.8 % (35.0-45.0); HEMOGLOBIN 11.3 g/dl (12.0-16.0); LYMPHOCYTES # (AUTO) 1.2 X10'3 (1.1-4.8); LYMPHOCYTES % (AUTO) 14.3 % (21-51); MEAN CORPUSCULAR HEMOGLOBIN 27.9 PG (27.0-31.0); MEAN CORPUSCULAR HGB CONC 32.5 g/dL (33.0-36.5); MEAN CORPUSCULAR VOLUME 85.8 FL (78-98); MEAN PLATELET VOLUME 7.7 FL (7.4-10.4); MONOCYTES # (AUTO) 0.5 X10'3 (0-0.9); MONOCYTES % (AUTO) 6.3 % (2-12); NEUTROPHILS # (AUTO) 6.4 X10'3 (1.8-7.7); NEUTROPHILS % (AUTO) 76.2 % (42-75); PLATELET COUNT 437 X10'3 (140-440); RED BLOOD COUNT 4.06 X10'6 (4.20-5.60); RED CELL DISTRIBUTION WIDTH 15.8 % (11.5-14.5); WHITE BLOOD COUNT 8.4 X10'3 (4.5-11.0)
[2022-06-05 18:32] LABS: ALANINE AMINOTRANSFERASE 24 U/L (12-78); ALBUMIN 3.6 G/DL (3.4-5.0); ALBUMIN/GLOBULIN RATIO 0.8 (1.1-1.5); ALKALINE PHOSPHATASE 91 IU/L (46-116); ANION GAP 13 (8-16); ASPARTATE AMINO TRANSFERASE 24 U/L (10-37); BILIRUBIN,TOTAL 0.2 MG/DL (0.1-1.0); BLOOD UREA NITROGEN 10 MG/DL (7-18); BUN/CREATININE RATIO 9.3 (6.6-38.0); CALCIUM 8.8 MG/DL (8.5-10.1); CHLORIDE 106 MMOL/L (99-107); CREATININE 1.08 MG/DL (0.40-0.90); GLUCOSE 140 MG/DL (70-104); POTASSIUM 3.8 MMOL/L (3.5-5.1); SODIUM 142 MMOL/L (135-145); TOTAL CARBON DIOXIDE 23.1 MMOL/L (24-32); TOTAL PROTEIN 8.1 G/DL (6.4-8.2); eGFR 50 ML/MIN
[2022-06-05 19:44] VITALS: BP 154/71
[2022-06-05] MEDS ORDERED: ipratropium/albuterol 3ml nebule NEB ONE (20:00)
[2022-06-05 20:09] LABS: CLARITY,URINE CLEAR (Clear); COLOR,URINE YELLOW (Yellow); GLUCOSE, URINE NEGATIVE (Neg); KETONES,URINE NEGATIVE (Neg); LEUKOCYTE ESTERASE ,URINE TRACE (Neg); NITRITES, URINE NEGATIVE (Neg); OCCULT BLOOD,URINE LARGE (Neg); PH,URINE 5.5 (4.8-8.0); PROTEIN,URINE 30 mg/dl (Neg); UROBILINOGEN,URINE 0.2 E.U/dL (0.2-1.0)
[2022-06-05 20:20] LABS: UA COLLECTION TYPE CLN CATCH MIDSTREAM
[2022-06-05 20:21] LABS: BACTERIA,URINE 1+ /HPF (Neg); SQUAMOUS EPITHELIAL CELL,UR FEW /LPF (FEW); WBC,URINE 0-4 /HPF (0-4)
[2022-06-05 20:32] LABS: D-DIMER 3.34 MG/L FEU (0-0.50)
[2022-06-05] MEDS ORDERED: iohexol 350MG/ML 100ml bottle IV ONE (21:04)
== END 2022-06-05 23:01 | disposition home or self-care (01) ==
LOC: ER 17:29
DX: R06.01 Orthopnea (principal); R06.02 Shortness of breath; A41.9 Sepsis, unspecified organism; G89.29 Other chronic pain; Z86.19 Personal history of other infectious and parasitic diseases; Z87.442 Personal history of urinary calculi; Z87.440 Personal history of urinary (tract) infections; Z90.710 Acquired absence of both cervix and uterus; Z98.890 Other specified postprocedural states; Z88.5 Allergy status to narcotic agent; Z79.82 Long term (current) use of aspirin; Z79.2 Long term (current) use of antibiotics; Z79.899 Other long term (current) drug therapy
CPT/HCPCS: 36415; 71046; 71275; 80053; 81001; 83880; 84484; 85025; 85379; 87088; 94640; 99285; J3490; Q9967; 94760

== ENCOUNTER 2023-04-30 06:40 | Inpatient (IN) | payer MEDICARE, MEDICAID ==
[2023-04-23 11:00] LABS: BASOPHILS % (AUTO) 0.8 % (0-1); EOSINOPHILS # (AUTO) 0.2 X10'3 (0-0.9); LYMPHOCYTES # (AUTO) 1.3 X10'3 (1.1-4.8); MEAN CORPUSCULAR HEMOGLOBIN 28.6 PG (27.0-31.0); MEAN CORPUSCULAR HGB CONC 32.6 g/dL (33.0-36.5); MEAN CORPUSCULAR VOLUME 87.9 FL (78-98); MEAN PLATELET VOLUME 8.2 FL (7.4-10.4); MONOCYTES # (AUTO) 0.5 X10'3 (0-0.9); MONOCYTES % (AUTO) 9.1 % (2-12); NEUTROPHILS # (AUTO) 3.8 X10'3 (1.8-7.7); NEUTROPHILS % (AUTO) 65.1 % (42-75); PRE OP HEMATOCRIT 33.5 % (35.0-45.0); PRE OP PLATELET COUNT 257 X10'3 (140-440); RED CELL DISTRIBUTION WIDTH 15.2 % (11.5-14.5)
[2023-04-23 11:03] LABS: PRE OP HEMOGLOBIN 10.9 g/dL (12.0-16.0)
[2023-04-23 11:06] LABS: ALBUMIN 3.8 G/DL (3.4-5.0); ALBUMIN/GLOBULIN RATIO 1.1 (1.1-1.5); ALKALINE PHOSPHATASE 99 IU/L (46-116); BLOOD UREA NITROGEN 17 MG/DL (7-18); BUN/CREATININE RATIO 12.6 (10.0-20.0); CALCIUM 8.8 MG/DL (8.5-10.1); CHLORIDE 109 MMOL/L (99-107); CREATININE 1.35 MG/DL (0.40-0.90); PRE OP ALT 29 U/L (30-65); PRE OP ANION GAP 12 (8-16); PRE OP AST 21 U/L (10-37); PRE OP BILIRUB, TOTAL 0.3 MG/DL (0.0-1.0); PRE OP GLUCOSE 109 MG/DL (70-104); PRE OP POTASSIUM 4.6 MMOL/L (3.4-5.1); PRE OP SODIUM 143 MMOL/L (135-145); TOTAL CARBON DIOXIDE 21.8 MMOL/L (24-32); TOTAL PROTEIN 7.4 G/DL (6.4-8.2); eGFR 39 ML/MIN
[2023-04-30] VITALS (17 sets, daily range): BP systolic 113–171; BP diastolic 55–88
[~2023-04-30] VITALS: Ht 162.6 cm; Wt 78.0 kg
[~2023-04-30 06:40] MED LIST changes: +CALC600T45 PO; -CEFD300C3 PO; +CHOL500050 PO; +CYCL-394 PO; +FAMO40TA58 PO; +GABA300C PO; -LOSA100T57 PO; +LOSA100T58 PO; +MELO-102 PO; +MIRA50TA PO; +PANT20TA18 PO; -PANT40TA54 PO; +POTA10TA21 PO; +cefazolin 2gm/D5W 100mL 100 ML IV ONE; +famotidine 20mg tablet PO ONE; +ringers solution, lacted 1,000 ML IV SCH; +tranexamic acid 650mg tablet PO ONE; +vancomycin 1,500 MG in NS 300ml IV soln IV ONE
[2023-04-30] MEDS ORDERED: ringers solution, lacted 1,000 ML IV SCH (10:25)
[2023-04-30] MEDS ORDERED: meperidine/PF 25mg/ml syringe IV PRN ×3 (10:25)
[2023-04-30] MEDS ORDERED: morphine 4 MG/ML inj SYRINge IV PRN (10:25)
[2023-04-30] MEDS ORDERED: proCHLORperazine 10 MG/2 ml inj IV PRN (10:25)
[2023-04-30] MEDS ORDERED: ondansetron/PF 4mg/2ml inj IV PRN ×2 (10:25→14:10)
[2023-04-30] MEDS ORDERED: morphine 2 MG/ML inj. syringe IV PRN (10:25)
--- NOTE | 2023-04-30 11:05 | NUR ---
CMS NOTE: PT STATES SHE SHOWERED X5 WITH HIBICLENS, USED MUPIROCIN OINTMENT X5 DAYS. PT HAS PALPABLE BILAT RADIAL PULSES. PT EDUCATED ON USE OF IS WITH RETURN DEMONSTRATION PERFORMED. PT READ BOOKLET.
[2023-04-30] MEDS ORDERED: ROPIVAcaine 0.5% (5mg/ml) 30ml vial ONE (11:52)
[2023-04-30] MEDS ORDERED: fentaNYL/PF 50MCG/1 ML 2ML syringe ONE (11:55)
[2023-04-30] MEDS ORDERED: midazolam 1 mg/ML 2ml injection ONE (11:56)
[2023-04-30] MEDS ORDERED: sevoflurane 250ml liquid IH ONE (12:22)
[2023-04-30] MEDS ORDERED: LIDOcaine 1%/PF 5ML 10 MG/ML VIAL ONE (13:00)
[2023-04-30] MEDS ORDERED: propofol inj 20 ML IV ONE (13:00)
[2023-04-30] MEDS ORDERED: ePHEDrine 50MG/ML INJ. ONE (13:00)
[2023-04-30] MEDS ORDERED: dexamethasone sod phosphate 4mg/ml inj. ONE (13:01)
[2023-04-30] MEDS ORDERED: ROPIVAcaine 0.2%/PF PUMP/bolus 545 ML INTERSCALE SCH (13:40)
[2023-04-30] MEDS ORDERED: ROPIVAcaine 0.2% (10 MG/5 ML) BOLUS INJECTION INTERSCALE PRN (13:40)
[2023-04-30] MEDS ORDERED: ROPIVAcaine 0.5% (5mg/ml) 30ml vial IJ ONE (13:53)
[2023-04-30] MEDS ORDERED: ondansetron/PF 4mg/2ml inj ONE (14:03)
[2023-04-30] MEDS ORDERED: magnesium hydroxide 30ml (MOM) UD suspension PO PRN (14:10)
[2023-04-30] MEDS ORDERED: naloxone 0.4 mg/ml inj IV PRN (14:10)
[2023-04-30] MEDS ORDERED: HYDROcodone/acetaminophen 10/325mg tab PO PRN ×2 (14:10)
[2023-04-30] MEDS ORDERED: non-formulary drug (Acetaminophen 2 TAB) PO PRN (14:10)
[2023-04-30] MEDS ORDERED: acetaminophen 325mg tablet PO PRN (14:10)
[2023-04-30] MEDS ORDERED: oxyCODONE IR 5mg (immed. release) tablet PO PRN (14:10)
[2023-04-30] MEDS ORDERED: HYDROmorphone 1 mg/ml syringe IV PRN (14:10)
[2023-04-30] MEDS ORDERED: bisacodyl 10mg suppository rectal RC PRN (14:10)
[2023-04-30] MEDS ORDERED: diphenhydrAMINE 25mg capsule PO PRN ×2 (14:10)
[2023-04-30] MEDS ORDERED: cyclobenzaprine 10mg tablet PO PRN (14:10)
[2023-04-30] MEDS ORDERED: MELOXICAM 7.5 MG TABLET PO PRN (14:10)
[2023-04-30] MEDS ORDERED: HYDROmorphone inj. 0.5 MG/0.5 ML DISP.SYRIN IV PRN (14:10)
--- NOTE | 2023-04-30 14:20 | NUR ---
Received from OR via , accompanied by Anesthesiologist and report given by Anesthesiolgist, DR. PARISI. PATIENT RESPONDS TO VERBAL STIMULI, DENIES PAIN, V/S WNL, SCD ON , PIV 20G RFA, DRESSING SHOULDER WRAP TO LEFT SIDE CDI W/ COLD POWDER PACK
--- NOTE | 2023-04-30 15:20 | NUR ---
PATIENT MEETS CRITERIA FOR DISCHARGE FROM THE RECOVERY ROOM. REPORT CALLED TO AGUSTÍN ROSSI AND PATIENT TRANSFERRED TO [facility] WITH ALL BELONGINGS. JOSE RAFAEL PAIN. PIV WITH LR RUNNING.
--- NOTE | 2023-04-30 16:39 | NUR ---
BM pre hospital Addendum: 04/30/23 at 1643 by Madison Mendieta RN Amended: Links added.
[2023-04-30] MEDS: ceFAZolin/D5W- 1GM premix 50 ML IV SCH (16:45)
[2023-04-30] MEDS: potassium cl 20mEq in 1/2 NS 1,000 ML IV SCH ×2 (17:38→21:14)
--- NOTE | 2023-04-30 18:00 | NUR ---
I have reviewed and agree with interventions, assessments, and documentation by Heidy Miller LVN.
--- NOTE | 2023-04-30 18:35 | NUR ---
Patient in room ORTHO 4024. I have received report from KELTON ROSSI and had the opportunity to ask questions and assume patient care.
[2023-04-30] MEDS: oxyCODONE IR 5mg (immed. release) tablet PO PRN (19:33)
[2023-04-30] MEDS ORDERED: vancomycin/NS 1 GM ADD-VANTAGE 250 ML IV SCH (20:00)
[2023-04-30] MEDS ORDERED: sennosides 8.6mg tablet PO SCH (21:00)
[2023-04-30] MEDS ORDERED: atorvastatin 20mg tablet PO SCH (21:00)
[2023-04-30] MEDS: famotidine 20mg tablet PO SCH (21:05)
[2023-04-30] MEDS: potassium chloride 10mEq ER tablet PO SCH (21:06)
[2023-04-30] MEDS: lansoprazole 15mg solutab PO SCH (21:06)
[2023-04-30] MEDS: acetaminophen 325mg tablet PO SCH (21:07)
[2023-04-30] MEDS: gabapentin 300mg capsule PO SCH (21:08)
[2023-05-01] MEDS: ceFAZolin/D5W- 1GM premix 50 ML IV SCH (00:37)
[2023-05-01] MEDS: oxyCODONE IR 5mg (immed. release) tablet PO PRN ×4 (00:47→14:48)
[2023-05-01 02:00] VITALS: BP 101/48
[2023-05-01] MEDS: acetaminophen 325mg tablet PO SCH ×3 (02:00→14:49)
[2023-05-01] MEDS: potassium cl 20mEq in 1/2 NS 1,000 ML IV SCH ×2 (05:00→14:10)
[2023-05-01 05:59] LABS: ANION GAP 12 (8-16); CHLORIDE 102 MMOL/L (99-107); POTASSIUM 5.1 MMOL/L (3.5-5.1); SODIUM 135 MMOL/L (135-145); TOTAL CARBON DIOXIDE 21.3 MMOL/L (24-32)
[2023-05-01 06:00] VITALS: BP 101/58
[2023-05-01 06:09] LABS: BASOPHILS % (AUTO) 0.1 % (0-1); EOSINOPHILS % (AUTO) 0 % (0-6); HEMATOCRIT 28.2 % (35.0-45.0); HEMOGLOBIN 9.2 g/dl (12.0-16.0); LYMPHOCYTES # (AUTO) 0.9 X10'3 (1.1-4.8); LYMPHOCYTES % (AUTO) 7.4 % (21-51); MEAN CORPUSCULAR HEMOGLOBIN 28.7 PG (27.0-31.0); MEAN CORPUSCULAR HGB CONC 32.7 g/dL (33.0-36.5); MEAN CORPUSCULAR VOLUME 87.9 FL (78-98); MONOCYTES # (AUTO) 0.6 X10'3 (0-0.9); MONOCYTES % (AUTO) 4.9 % (2-12); NEUTROPHILS # (AUTO) 10.5 X10'3 (1.8-7.7); NEUTROPHILS % (AUTO) 87.6 % (42-75); PLATELET COUNT 239 X10'3 (140-440); RED BLOOD COUNT 3.21 X10'6 (4.20-5.60); RED CELL DISTRIBUTION WIDTH 15.3 % (11.5-14.5)
--- NOTE | 2023-05-01 06:16 | NUR ---
Problems reprioritized. Patient report given, questions answered & plan of care reviewed with KELTON ROSSI.
--- NOTE | 2023-05-01 06:16 | NUR ---
Patient in room ORTHO 4024. I have received report from Ani Richard and had the opportunity to ask questions and assume patient care.
[2023-05-01] MEDS: famotidine 20mg tablet PO SCH (07:52)
[2023-05-01] MEDS: potassium chloride 10mEq ER tablet PO SCH (07:54)
[2023-05-01] MEDS: lansoprazole 15mg solutab PO SCH (07:55)
[2023-05-01] MEDS: gabapentin 300mg capsule PO SCH ×2 (07:58→14:48)
[2023-05-01] MEDS ORDERED: losartan 50mg tablet PO SCH (08:00)
[2023-05-01] MEDS ORDERED: aspirin 81mg, enteric-coated 1 TAB TABLET.DR PO SCH (08:00)
[2023-05-01] MEDS ORDERED: cholecalciferol (vitamin D3) 1,000 unit (25mcg) tablet PO SCH (08:00)
[2023-05-01] MEDS ORDERED: mirabegron 25mg ER tablet PO SCH (08:00)
[2023-05-01] MEDS ORDERED: calcium carbonate 500mg tablet PO SCH (08:00)
[2023-05-01] MEDS ORDERED: aspirin 325mg tablet PO SCH (08:30)
[2023-05-01 10:00] VITALS: BP 118/59
--- NOTE | 2023-05-01 11:06 | NUR ---
Joint surgery consult: Pt s/p L shoulder surgery this admit per EMR. Pt seen by AMNIA for written/verbal high protein diet ed w/ RD contact information provided. RD encouraged pt to contact dietitian's office if further nutrition questions/concerns. Pt reports hx esophageal narrowing requiring dilation but no issues w/ PO at this time. Addendum: 05/01/23 at [address] Amended: Links added.
--- NOTE | 2023-05-01 13:30 | NUR ---
I have reviewed and agree with interventions, assessments, and documentation by Heidy Miller LVN.
--- NOTE | 2023-05-01 15:40 | NUR ---
Patient discharged home with family via pov. Belongings sent with, questions answered. PIV D/C'D. Pt alert and appropriate at the time of discharge, very appreciative of care from everyone that she was able to meet during this visit.
== END 2023-05-01 15:40 | disposition home health service (06) | DRG 483 ==
LOC: PAS IN 08:02 → ORTHO 4S 15:31
PROVIDERS: ADMIT Orthopaedic Surgery; ATTEND Orthopaedic Surgery
PROC: 0LS40ZZ Reposition Left Upper Arm Tendon, Open Approach (ICD-10-PCS; 2023-04-30)
PROC: 3E0T3BZ Introduction of Anesthetic Agent into Peripheral Nerves and Plexi, Percutaneous Approach (ICD-10-PCS; 2023-04-30)
PROC: 0RRK00Z Replacement of Left Shoulder Joint with Reverse Ball and Socket Synthetic Substitute, Open Approach (ICD-10-PCS; principal; 2023-04-30 12:22)
DX: M19.012 Primary osteoarthritis, left shoulder (principal); M75.112 Incomplete rotator cuff tear or rupture of left shoulder, not specified as traumatic; M65.812 Other synovitis and tenosynovitis, left shoulder; M75.22 Bicipital tendinitis, left shoulder
CPT/HCPCS: 36415; 80051; 80053; 82948; 85025; 87081; 97110; 97161; 97530; A4615; A4618; A7000; C1776; G0378; J0690; J1100; J2250; J2405; J2704; J2795; J3010; J3370; J3480; J3490; J7120

== ENCOUNTER 2023-05-05 14:38 | Emergency (ER) | payer MEDICARE, MEDICAID ==
[~2023-05-05] VITALS: Ht 162.6 cm; Wt 77.3 kg
[~2023-05-05 14:38] MED LIST changes: -ASPI-1071 PO; -cefazolin 2gm/D5W 100mL 100 ML IV ONE; -famotidine 20mg tablet PO ONE; -ringers solution, lacted 1,000 ML IV SCH; -tranexamic acid 650mg tablet PO ONE; -vancomycin 1,500 MG in NS 300ml IV soln IV ONE
[2023-05-05 14:44] VITALS: BP 142/67
[2023-05-05] MEDS ORDERED: ondansetron/PF 4mg/2ml inj IV ONE (14:45)
[2023-05-05] MEDS ORDERED: morphine 10mg/ml inj. IV ONE (14:45)
[2023-05-05] MEDS ORDERED: oxyCODONE/APAP 10/325mg tablet PO ONE (15:55)
[2023-05-05] MEDS ORDERED: OXYC-150 PO (17:07)
== END 2023-05-05 17:38 | disposition home or self-care (01) ==
LOC: ER 14:39
DX: M25.512 Pain in left shoulder (principal); Z88.5 Allergy status to narcotic agent; Z90.710 Acquired absence of both cervix and uterus
CPT/HCPCS: 73030; 73200; 96374; 96375; 99285; J2274; J2405

== ENCOUNTER 2024-12-02 09:07 | Inpatient (IN) | payer MEDICARE, MEDICAID ==
[2024-11-25 15:05] LABS: BASOPHILS # (AUTO) 0.1 X10'3 (0-0.2); BASOPHILS % (AUTO) 1.1 % (0-1); EOSINOPHILS # (AUTO) 0.3 X10'3 (0-0.9); EOSINOPHILS % (AUTO) 4.2 % (0-6); LYMPHOCYTES # (AUTO) 1.8 X10'3 (1.1-4.8); LYMPHOCYTES % (AUTO) 30.5 % (21-51); MEAN CORPUSCULAR HGB CONC 33.3 g/dL (33.0-36.5); MEAN CORPUSCULAR VOLUME 87.1 FL (78-98); MEAN PLATELET VOLUME 7.5 FL (7.4-10.4); MONOCYTES # (AUTO) 0.7 X10'3 (0-0.9); MONOCYTES % (AUTO) 11.5 % (2-12); NEUTROPHILS # (AUTO) 3.2 X10'3 (1.8-7.7); NEUTROPHILS % (AUTO) 52.7 % (42-75); PRE OP HEMATOCRIT 28.9 % (35.0-45.0); PRE OP PLATELET COUNT 346 X10'3 (140-440); RED BLOOD COUNT 3.32 X10'6 (4.20-5.60)
[2024-11-25 15:10] LABS: PRE OP HEMOGLOBIN 9.6 g/dL (12.0-16.0)
[2024-11-25 15:14] LABS: ALBUMIN 3.7 G/DL (3.4-5.0); ALBUMIN/GLOBULIN RATIO 0.8 (1.1-1.5); ALKALINE PHOSPHATASE 87 IU/L (46-116); BLOOD UREA NITROGEN 21 MG/DL (7-18); BUN/CREATININE RATIO 13.9 (10.0-20.0); CHLORIDE 107 MMOL/L (99-107); CREATININE 1.51 MG/DL (0.40-0.90); PRE OP ALT 21 U/L (30-65); PRE OP ANION GAP 7 (8-16); PRE OP AST 16 U/L (10-37); PRE OP BILIRUB, TOTAL 0.3 MG/DL (0.0-1.0); PRE OP GLUCOSE 118 MG/DL (70-104); PRE OP POTASSIUM 4.4 MMOL/L (3.4-5.1); PRE OP SODIUM 138 MMOL/L (135-145); TOTAL CARBON DIOXIDE 23.6 MMOL/L (24-32); TOTAL PROTEIN 8.2 G/DL (6.4-8.2); eGFR 34 ML/MIN
[~2024-12-02] VITALS: Ht 162.6 cm; Wt 70.5 kg
[2024-12-02] VITALS (25 sets, daily range): BP systolic 105–142; BP diastolic 44–78; PULSE 72–100; RESP 10–19; TEMP 97.4–98.4; O2SAT 90–96
[2024-12-02] MEDS: ceFAZolin 2gm in dextrose, iso 50 ML IV ONE (05:30)
[2024-12-02] MEDS: tranexamic acid 650mg tablet PO ONE (05:30)
[~2024-12-02 09:07] MED LIST changes: -ACET-75 PO; -CALC600T45 PO; -CHOL500050 PO; +DICL75TA6 PO; -FAMO40TA58 PO; +HYDR-3972; -MELO-102 PO; -MIRA50TA PO; -POTA10TA21 PO; +TRAZ-251 PO; +VIBE75TA PO
[2024-12-02] MEDS: ringers solution, lacted 1,000 ML IV SCH ×2 (09:40→14:45)
[2024-12-02] MEDS: VANCOMYCIN/H2O 1.5g/300mL PB 300 ML IV ONE (09:40)
[2024-12-02] MEDS: famotidine 20mg tablet PO ONE (09:40)
[2024-12-02] MEDS ORDERED: ketorolac trometh 30MG/ML vial 30 MG/ML VIAL ONE (12:05)
[2024-12-02] MEDS ORDERED: ROPIVAcaine 0.5% (5mg/ml) 30ml vial ONE ×2 (12:05→13:59)
[2024-12-02] MEDS ORDERED: sevoflurane 250ml liquid IH ONE (12:51)
[2024-12-02] MEDS ORDERED: fentaNYL/PF 50MCG/1 ML 2ML syringe ONE (13:00)
[2024-12-02] MEDS ORDERED: rocuronium 10mg/ml inj IV ONE (13:59)
[2024-12-02] MEDS ORDERED: dexamethasone sod phosphate 4mg/ml inj. ONE (13:59)
[2024-12-02] MEDS ORDERED: propofol inj 20 ML IV ONE (13:59)
[2024-12-02] MEDS ORDERED: midazolam 1 mg/ML 2ml injection ONE (13:59)
[2024-12-02] MEDS ORDERED: LIDOcaine 2% (20mg/ml) 5ml vial ONE (13:59)
[2024-12-02] MEDS ORDERED: ondansetron/PF 4mg/2ml inj ONE (13:59)
[2024-12-02] MEDS ORDERED: fentaNYL /PF 50mcg/ml 5ml ampule ONE (14:10)
[2024-12-02] MEDS ORDERED: ePHEDrine 50MG/ML INJ. ONE (14:20)
[2024-12-02] MEDS ORDERED: 0.9 % SODIUM CHLORIDE 10 ML VIAL ONE (14:21)
[2024-12-02] MEDS ORDERED: ondansetron/PF 4mg/2ml inj IV PRN ×2 (14:45→15:05)
[2024-12-02] MEDS ORDERED: morphine 4 MG/ML inj SYRINge IV PRN (14:45)
[2024-12-02] MEDS ORDERED: labetalol 20mg/4ml (5mg/ml) syringe IV PRN (14:45)
[2024-12-02] MEDS ORDERED: hydrALAZINE 20mg/ml inj. IV PRN (14:45)
[2024-12-02] MEDS ORDERED: morphine 2 MG/ML inj. syringe IV PRN (14:45)
[2024-12-02] MEDS ORDERED: proCHLORperazine 10 MG/2 ml inj IV PRN (14:45)
[2024-12-02] MEDS ORDERED: HYDROmorphone/PF 0.2 MG/ML SYRINGE IV PRN (14:45)
[2024-12-02] MEDS ORDERED: meperidine/PF 25mg/ml syringe IV PRN (14:45)
[2024-12-02] MEDS ORDERED: neostigmine methylsulfate 1 MG/ML 10ml vial ONE (14:53)
[2024-12-02] MEDS ORDERED: glycopyrrolate 0.2mg/ml inj ONE (14:53)
[2024-12-02] MEDS ORDERED: HYDROmorphone inj. 0.5 MG/0.5 ML DISP.SYRIN IV PRN (15:05)
[2024-12-02] MEDS ORDERED: bisacodyl 10mg suppository rectal RC PRN (15:05)
[2024-12-02] MEDS ORDERED: diphenhydrAMINE 25mg capsule PO PRN ×2 (15:05)
[2024-12-02] MEDS ORDERED: acetaminophen 325mg tablet PO PRN (15:05)
[2024-12-02] MEDS ORDERED: cyclobenzaprine 10mg tablet PO PRN ×2 (15:05→15:14)
[2024-12-02] MEDS ORDERED: magnesium hydroxide 30ml (MOM) UD suspension PO PRN (15:05)
[2024-12-02] MEDS: ROPIVAcaine 0.2% (10 MG/5 ML) BOLUS INJECTION INTERSCALE PRN (15:50)
[2024-12-02] MEDS: ROPIVAcaine 0.2%/PF PUMP/bolus 545 ML INTERSCALE SCH (15:50)
[2024-12-02] MEDS ORDERED: ceFAZolin/D5W- 1GM premix 50 ML IV SCH (16:00)
[2024-12-02] MEDS: potassium cl 20mEq in 1/2 NS 1,000 ML IV SCH (16:08)
[2024-12-02] MEDS: HYDROmorphone/PF 0.2 MG/ML SYRINGE IV PRN (16:20)
[2024-12-02] MEDS: acetaminophen 1,000mg/100ml IV 100 ML IV PRN (16:20)
[2024-12-02] MEDS: oxyCODONE IR 5mg (immed. release) tablet PO PRN (17:17)
[2024-12-02] MEDS: HYDROmorphone 1 mg/ml syringe IV PRN (19:50)
[2024-12-02] MEDS: Diclofenac Sodium 75 MG PO SCH (20:00)
[2024-12-02] MEDS: simvastatin 20mg tablet PO SCH (20:33)
[2024-12-02] MEDS: pantoprazole 40mg Tablet.DR PO SCH (20:33)
[2024-12-02] MEDS: sennosides 8.6mg tablet PO SCH (20:33)
[2024-12-02] MEDS: traZODone 50mg tablet PO SCH (20:33)
[2024-12-02] MEDS: acetaminophen 325mg tablet PO SCH (20:34)
[2024-12-02] MEDS: gabapentin 300mg capsule PO SCH (20:34)
[2024-12-02] MEDS: ceFAZolin/D5W- 1GM premix 50 ML IV SCH (20:35)
[2024-12-02] MEDS: vancomycin/NS 1 GM ADD-VANTAGE 250 ML IV SCH (21:59)
[2024-12-03 02:00] VITALS: BP 106/57; PULSE 82; RESP 13; TEMP 97.4; O2SAT 96
[2024-12-03] MEDS: oxyCODONE IR 5mg (immed. release) tablet PO PRN (03:43)
[2024-12-03 06:00] VITALS: BP 117/50; PULSE 68; RESP 13; TEMP 98.1; O2SAT 95
[2024-12-03 06:08] LABS: BASOPHILS % (AUTO) 0.5 % (0-1); EOSINOPHILS % (AUTO) 0 % (0-6); HEMATOCRIT 25.1 % (35.0-45.0); HEMOGLOBIN 8.2 g/dl (12.0-16.0); LYMPHOCYTES # (AUTO) 0.6 X10'3 (1.1-4.8); LYMPHOCYTES % (AUTO) 9.6 % (21-51); MEAN CORPUSCULAR HEMOGLOBIN 28.7 PG (27.0-31.0); MEAN CORPUSCULAR HGB CONC 32.8 g/dL (33.0-36.5); MEAN CORPUSCULAR VOLUME 87.4 FL (78-98); MEAN PLATELET VOLUME 7.9 FL (7.4-10.4); MONOCYTES # (AUTO) 0.4 X10'3 (0-0.9); MONOCYTES % (AUTO) 5.8 % (2-12); NEUTROPHILS # (AUTO) 5.6 X10'3 (1.8-7.7); NEUTROPHILS % (AUTO) 84.1 % (42-75); PLATELET COUNT 249 X10'3 (140-440); RED BLOOD COUNT 2.87 X10'6 (4.20-5.60); RED CELL DISTRIBUTION WIDTH 16.1 % (11.5-14.5); WHITE BLOOD COUNT 6.7 X10'3 (4.5-11.0)
[2024-12-03 06:37] LABS: ANION GAP 12 (8-16); CHLORIDE 106 MMOL/L (99-107); POTASSIUM 4.6 MMOL/L (3.5-5.1); SODIUM 137 MMOL/L (135-145); TOTAL CARBON DIOXIDE 19.5 MMOL/L (24-32)
[2024-12-03] MEDS ORDERED: celeCOXIB 100mg capsule PO SCH ×2 (08:00→20:00)
[2024-12-03 08:50] VITALS: BP_SYST 117; PULSE 68
[2024-12-03] MEDS: aspirin 325mg tablet PO SCH (08:50)
[2024-12-03] MEDS: losartan 50mg tablet PO SCH (08:50)
[2024-12-03 09:53] VITALS: RESP 15
[2024-12-04] MEDS ORDERED: acetaminophen 325mg tablet PO PRN (13:15)
== END 2024-12-03 10:01 | disposition home or self-care (01) | DRG 483 ==
LOC: PAS IN 09:07 → ORTHO 4S 17:51
PROVIDERS: ADMIT Orthopaedic Surgery; ATTEND Orthopaedic Surgery
PROC: 0RPK0JZ Removal of Synthetic Substitute from Left Shoulder Joint, Open Approach (ICD-10-PCS; 2024-12-02)
PROC: 0RRK00Z Replacement of Left Shoulder Joint with Reverse Ball and Socket Synthetic Substitute, Open Approach (ICD-10-PCS; principal; 2024-12-02 12:51)
DX: T84.89XA Other specified complication of internal orthopedic prosthetic devices, implants and grafts, initial encounter (principal); M25.312 Other instability, left shoulder; X58.XXXA Exposure to other specified factors, initial encounter; Y83.8 Other surgical procedures as the cause of abnormal reaction of the patient, or of later complication, without mention of misadventure at the time of the procedure; Y92.89 Other specified places as the place of occurrence of the external cause
CPT/HCPCS: 36415; 80051; 80053; 82948; 85025; 87070; 87075; 87081; 97110; 97161; 97530; A4565; A4615; A4618; A7000; C1776; G0378; J0131; J0690; J0735; J1100; J1171; J1885; J2003; J2250; J2405; J2704; J2710; J2795; J3010; J3370; J3372; J3480; J3490; J7120

== ENCOUNTER 2025-02-03 07:55 | Day surgery (SDC) | payer MEDICARE, MEDICAID ==
[2025-01-30 15:40] LABS: BASOPHILS # (AUTO) 0.1 X10'3 (0-0.2); BASOPHILS % (AUTO) 1.4 % (0-1); EOSINOPHILS # (AUTO) 0.2 X10'3 (0-0.9); EOSINOPHILS % (AUTO) 5.2 % (0-6); LYMPHOCYTES # (AUTO) 1.7 X10'3 (1.1-4.8); MEAN CORPUSCULAR HGB CONC 32.9 g/dL (33.0-36.5); MEAN CORPUSCULAR VOLUME 85.1 FL (78-98); MEAN PLATELET VOLUME 7.9 FL (7.4-10.4); MONOCYTES # (AUTO) 0.6 X10'3 (0-0.9); MONOCYTES % (AUTO) 12.8 % (2-12); NEUTROPHILS # (AUTO) 2.1 X10'3 (1.8-7.7); NEUTROPHILS % (AUTO) 44.6 % (42-75); PRE OP HEMATOCRIT 31.3 % (35.0-45.0); PRE OP PLATELET COUNT 314 X10'3 (140-440); PRE OP WHITE BLOOD COUNT 4.7 10'3 (4.8-10.8); RED BLOOD COUNT 3.67 X10'6 (4.20-5.60)
[2025-01-30 15:51] LABS: PRE OP PROTIME 10.1 SECONDS (9.0-12.0)
[2025-01-30 15:52] LABS: ALBUMIN 4.2 G/DL (3.4-5.0); ALBUMIN/GLOBULIN RATIO 1.1 (1.1-1.5); ALKALINE PHOSPHATASE 90 IU/L (46-116); BLOOD UREA NITROGEN 16 MG/DL (7-18); BUN/CREATININE RATIO 13.6 (10.0-20.0); CALCIUM 8.7 MG/DL (8.5-10.1); CHLORIDE 106 MMOL/L (99-107); CREATININE 1.18 MG/DL (0.40-0.90); PRE OP ALT 22 U/L (30-65); PRE OP ANION GAP 10 (8-16); PRE OP BILIRUB, TOTAL 0.3 MG/DL (0.0-1.0); PRE OP GLUCOSE 105 MG/DL (70-104); PRE OP SODIUM 141 MMOL/L (135-145); TOTAL CARBON DIOXIDE 24.9 MMOL/L (24-32); TOTAL PROTEIN 8.1 G/DL (6.4-8.2); eGFR 45 ML/MIN
[2025-01-30 15:53] LABS: PRE OP AST 30 U/L (10-37); PRE OP POTASSIUM 4.5 MMOL/L (3.4-5.1)
[2025-01-30 16:06] LABS: PRE OP HEMOGLOBIN 10.3 g/dL (12.0-16.0)
[~2025-02-03] VITALS: Ht 162.6 cm; Wt 70.0 kg
[2025-02-03] VITALS (13 sets, daily range): BP systolic 119–168; BP diastolic 64–75; PULSE 62–79; RESP 10–17; TEMP 97.7; O2SAT 92–98
[2025-02-03] MEDS: ceFAZolin 2gm in dextrose, iso 50 ML IV ONE (05:30)
[2025-02-03] MEDS: tranexamic acid 1gm/0.7% sal. 100 ML IV ONE (05:30)
[~2025-02-03 07:55] MED LIST changes: +ATOR40TA71 PO; +ESTR42.510 PV; +IBUP-1985 PO; -SIMV-45 PO; +[UNRECOGNIZED DRUG - CODE] PO
[2025-02-03] MEDS ORDERED: proCHLORperazine 10 MG/2 ml inj IV PRN (08:45)
[2025-02-03] MEDS ORDERED: ondansetron/PF 4mg/2ml inj IV PRN (08:45)
[2025-02-03] MEDS ORDERED: ringers solution, lacted 1,000 ML IV SCH (08:45)
[2025-02-03] MEDS ORDERED: morphine 2 MG/ML inj. syringe IV PRN (08:45)
[2025-02-03] MEDS ORDERED: meperidine/PF 100mg/ml syringe IV PRN ×3 (08:45)
[2025-02-03] MEDS ORDERED: enalaprilat 1.25mg/ml 2ml vial IV PRN (08:45)
[2025-02-03] MEDS: famotidine 20mg tablet PO ONE (08:54)
[2025-02-03] MEDS: oxymetazoline 15 ML nasal spray NS ONE (08:55)
[2025-02-03] MEDS: ringers solution, lacted 1,000 ML IV SCH (08:56)
[2025-02-03] MEDS ORDERED: Thrombin (Bovine) 5,000 unit vial TP ONE (09:56)
[2025-02-03] MEDS ORDERED: cocaine 4% topical solution 4ml bottle ONE (09:56)
[2025-02-03] MEDS ORDERED: epiNEPHrine 1 mg/ml 30ml MDV ONE (09:56)
[2025-02-03] MEDS ORDERED: methylPREDNISolone acetate 80mg/ml inj**IM only ONE (09:56)
[2025-02-03] MEDS ORDERED: mupirocin 2% ointment 22GM ONE (09:56)
[2025-02-03] MEDS ORDERED: LIDOcaine 1% W/epiNEPHrine 1:100,000 20ml vial ONE (09:56)
[2025-02-03] MEDS ORDERED: oxymetazoline 15 ML nasal spray NS ONE (09:56)
[2025-02-03] MEDS ORDERED: sevoflurane 250ml liquid IH ONE (10:05)
[2025-02-03] MEDS ORDERED: midazolam 1 mg/ML 2ml injection ONE (10:19)
[2025-02-03] MEDS ORDERED: fentaNYL/PF 50MCG/1 ML 2ML syringe ONE (10:19)
[2025-02-03] MEDS ORDERED: propofol inj 20 ML IV ONE (10:22)
[2025-02-03] MEDS ORDERED: ondansetron/PF 4mg/2ml inj ONE (10:37)
[2025-02-03] MEDS ORDERED: rocuronium 10mg/ml inj IV ONE (10:37)
[2025-02-03] MEDS ORDERED: acetaminophen 1,000mg/100ml IV 100 ML IV ONE (10:38)
[2025-02-03] MEDS ORDERED: ceFAZolin 1000mg inj ONE (10:55)
[2025-02-03] MEDS ORDERED: glycopyrrolate 0.2mg/ml inj ONE (11:10)
[2025-02-03] MEDS ORDERED: neostigmine methylsulfate 1 MG/ML 10ml vial ONE (11:10)
[2025-02-03] MEDS: labetalol 20mg/4ml (5mg/ml) syringe IV PRN (11:41)
[2025-02-03] MEDS: morphine 4 MG/ML inj SYRINge IV PRN (11:46)
[2025-02-03] MEDS: mupirocin 2% nasal ointment 1gm UD NS ONE (12:04)
[2025-02-03] MEDS: salt irrigation nasal spray 45 ML SPRAY NS ONE (12:04)
== END 2025-02-03 12:36 | disposition home or self-care (01) ==
LOC: PAS 07:55
PROVIDERS: ATTEND Otolaryngology
DX: J34.3 Hypertrophy of nasal turbinates (principal); J34.89 Other specified disorders of nose and nasal sinuses; J32.9 Chronic sinusitis, unspecified; K21.9 Gastro-esophageal reflux disease without esophagitis; K22.70 Barrett's esophagus without dysplasia; I12.9 Hypertensive chronic kidney disease with stage 1 through stage 4 chronic kidney disease, or unspecified chronic kidney disease; N18.30 Chronic kidney disease, stage 3 unspecified; Z79.01 Long term (current) use of anticoagulants; E78.5 Hyperlipidemia, unspecified; Z86.73 Personal history of transient ischemic attack (TIA), and cerebral infarction without residual deficits; D64.9 Anemia, unspecified; Z79.899 Other long term (current) drug therapy; Z98.890 Other specified postprocedural states; Z90.710 Acquired absence of both cervix and uterus
CPT/HCPCS: 30140; 31240; 36415; 80053; 82948; 85025; 85610; 85730; 93005; A4618; A6402; A7000; J0131; J0171; J0690; J1100; J2003; J2250; J2270; J2405; J2704; J2710; J3010; J3490; J7030; J7040; J7120; Z7506; Z7508; Z7512; Z7610; A6449; J1010